=== PATIENT | male | born 1970 | race Caucasian/White ===

== ENCOUNTER 2017-01-11 15:35 | Emergency (ER) | payer MEDICAID ==
[~2017-01-11] VITALS: Ht 175.3 cm; Wt 96.2 kg
[~2017-01-11 15:35] MED LIST: ALBU18HF2 IH; BUPR-96 PO; CYCL-343 PO; DIPH25CA6 PO; DOCU250C75 PO; FOLI1TAB16 PO; FURO40TA5 PO; HYDR-3326 PO; LEVO25TA7 PO; MAGN400T26 PO; PANT40TA2 PO; SPIR25TA4 PO; ZOLP10TA6 PO
[2017-01-11 16:28] LABS: BASOPHILS % (AUTO) 0.3 % (0.0-2.0); DIFF TOTAL % 100 %; EOSINOPHILS # (AUTO) 0.3 /CMM (0.0-0.7); EOSINOPHILS % (AUTO) 5.6 % (0.0-6.0); HEMATOCRIT 28 % (39-51); HEMOGLOBIN 9.2 g/dL (13.5-17.5); LYMPHOCYTES # (AUTO) 0.7 /CMM (0.8-4.8); LYMPHOCYTES % (AUTO) 13.5 % (20.0-44.0); MEAN CORPUSCULAR HEMOGLOBIN 28 PG (26.0-33.0); MEAN CORPUSCULAR HGB CONC 33 g/dl (31.0-36.0); MEAN CORPUSCULAR VOLUME 85 fL (80-96); MONOCYTES # (AUTO) 0.2 /CMM (0.1-1.30); MONOCYTES % (AUTO) 4.4 % (2.0-12.0); NEUTROPHILS # (AUTO) 3.7 /CMM (1.8-8.9); NEUTROPHILS % (AUTO) 76.2 % (43.0-81.0); RED BLOOD CELL COUNT(AUTO) 3.29 MIL/uL (4.5-6.0); WHITE BLOOD COUNT (AUTO) 4.9 K/uL (4.3-11.0)
[2017-01-11 16:33] LABS: ADD UA MICROSCOPIC NO; KETONES,URINE Negative (NEGATIVE); LEUKOCYTE ESTERASE ,URINE Negative (NEGATIVE)
[2017-01-11 16:35] LABS: PLATELET COUNT (AUTO) 43 /CMM (150-450)
[2017-01-11 16:44] LABS: POTASSIUM 4.2 mmol/L (3.5-5.1)
[2017-01-11 16:49] LABS: ALBUMIN 2.5 g/dL (3.4-5.0); BILIRUBIN,DIRECT 0.6 mg/dL (0.0-0.2); BILIRUBIN,TOTAL 1.5 mg/dL (0.2-1.0); INDIRECT BILIRUBIN 0.9 mg/dL (0.0-1.1); TOTAL PROTEIN, SERUM 6.8 g/dL (6.4-8.2)
[2017-01-11 16:54] LABS: CALCIUM, SERUM 8.1 mg/dL (8.5-10.1)
[2017-01-11 17:10] LABS: EOSINOPHILS % (MANUAL) 6 % (0-4); LYMPHOCYTES % (MANUAL) 8 % (16-48)
[2017-01-11 17:13] LABS: PLATELET ESTIMATE DECREASED
[2017-01-11 17:14] LABS: ANISOCYTOSIS 1+
[2017-01-11 17:19] VITALS: BP 112/72
== END 2017-01-11 17:20 | disposition home or self-care (01) ==
LOC: ER 15:41
DX: R18.8 Other ascites (principal); K74.60 Unspecified cirrhosis of liver; K59.00 Constipation, unspecified; K21.9 Gastro-esophageal reflux disease without esophagitis; E03.9 Hypothyroidism, unspecified; D64.9 Anemia, unspecified; D69.6 Thrombocytopenia, unspecified
CPT/HCPCS: 36415; 76942-TC; 80048-TC; 80076-TC; 81000-TC; 83690-TC; 85025-TC; A4606; Z7610

== ENCOUNTER 2017-02-02 19:29 | Inpatient (IN) | payer MEDICAID ==
[~2017-02-02] VITALS: Ht 175.3 cm; Wt 102.5 kg
[2017-02-02 21:01] LABS: BASOPHILS % (AUTO) 0.3 % (0.0-2.0); DIFF TOTAL % 100 %; EOSINOPHILS # (AUTO) 0.3 /CMM (0.0-0.7); EOSINOPHILS % (AUTO) 5.8 % (0.0-6.0); HEMATOCRIT 28 % (39-51); HEMOGLOBIN 9.3 g/dL (13.5-17.5); LYMPHOCYTES # (AUTO) 0.8 /CMM (0.8-4.8); LYMPHOCYTES % (AUTO) 15.8 % (20.0-44.0); MEAN CORPUSCULAR HEMOGLOBIN 28 PG (26.0-33.0); MEAN CORPUSCULAR HGB CONC 33 g/dl (31.0-36.0); MEAN CORPUSCULAR VOLUME 85 fL (80-96); MONOCYTES # (AUTO) 0.5 /CMM (0.1-1.30); MONOCYTES % (AUTO) 9.1 % (2.0-12.0); NEUTROPHILS # (AUTO) 3.6 /CMM (1.8-8.9); PLATELET COUNT (AUTO) 70 /CMM (150-450); RED BLOOD CELL COUNT(AUTO) 3.27 MIL/uL (4.5-6.0); WHITE BLOOD COUNT (AUTO) 5.2 K/uL (4.3-11.0)
[2017-02-02 21:11] LABS: CALCIUM, SERUM 7.8 mg/dL (8.5-10.1); CREATININE 0.9 mg/dL (0.6-1.3); POTASSIUM 3.3 mmol/L (3.5-5.1)
[2017-02-02 21:15] LABS: INR 1.47 (0.87-1.13); PROTHROMBIN TIME 15.4 SECS (9.5-12.7)
[2017-02-02 21:16] LABS: ALBUMIN 2.4 g/dL (3.4-5.0); TOTAL PROTEIN, SERUM 6.9 g/dL (6.4-8.2)
[2017-02-02 21:38] LABS: EOSINOPHILS % (MANUAL) 4 % (0-4); LYMPHOCYTES % (MANUAL) 16 % (16-48); PLATELET ESTIMATE DECREASED
[2017-02-02] MEDS ORDERED: HYDROCODONE/APAP 10/325MG 1 EA TABLET ONE (21:54)
[2017-02-02] MEDS ORDERED: HYDROCODONE/APAP 10/325MG 1 EA TABLET PO ONE (22:30)
[2017-02-02 23:15] VITALS: BP 124/88
[2017-02-02 23:20] VITALS: BP 124/80
[2017-02-03] MEDS ORDERED: Z GUARD REMEDY 2 OZ OINT TP PRN
[2017-02-03] MEDS ORDERED: MORPHINE SULFATE INJ 2 MG/ML DISP.SYRIN IV PRN
[2017-02-03] MEDS ORDERED: HYDROCODONE/APAP 5/325MG 1 EACH TABLET PO PRN
[2017-02-03] MEDS ORDERED: ZOLPIDEM TARTRATE 5 MG TABLET PO PRN
[2017-02-03] MEDS ORDERED: ONDANSETRON HCL/PF 4 MG/2 ML VIAL IVP PRN
[2017-02-03] MEDS ORDERED: ACETAMINOPHEN 325 MG TABLET PO PRN
[2017-02-03] MEDS ORDERED: CYCLOBENZAPRINE 10 MG TABLET PO PRN (00:30)
[2017-02-03] MEDS ORDERED: DOCUSATE SODIUM 250 MG CAPSULE PO PRN (00:30)
[2017-02-03] MEDS ORDERED: POTASSIUM CHLORIDE 20 MEQ TAB.PRT.SR PO ONE ×2 (00:30→01:08)
[2017-02-03] MEDS ORDERED: ALBUTEROL SULFATE 8 GM HFA.AER.AD IH PRN (00:30)
[2017-02-03] MEDS ORDERED: diphenhydrAMINE HCL 25 MG CAPSULE ONE (01:08)
[2017-02-03] MEDS: diphenhydrAMINE HCL 25 MG CAPSULE PO PRN ×2 (01:16→08:40)
[2017-02-03] MEDS ORDERED: MORPHINE SULFATE INJ 2 MG/ML DISP.SYRIN ONE (03:29)
[2017-02-03 03:40] VITALS: BP 122/82
[2017-02-03] MEDS ORDERED: LEVOTHYROXINE SODIUM 25 MCG TABLET PO SCH (07:30)
[2017-02-03] MEDS ORDERED: PANTOPRAZOLE 40 MG TABLET.DR PO SCH (07:30)
[2017-02-03 07:42] LABS: BASOPHILS % (AUTO) 0.1 % (0.0-2.0); DIFF TOTAL % 100 %; EOSINOPHILS # (AUTO) 0.2 /CMM (0.0-0.7); EOSINOPHILS % (AUTO) 7.2 % (0.0-6.0); HEMATOCRIT 26 % (39-51); HEMOGLOBIN 8.7 g/dL (13.5-17.5); LYMPHOCYTES # (AUTO) 0.7 /CMM (0.8-4.8); LYMPHOCYTES % (AUTO) 25.7 % (20.0-44.0); MEAN CORPUSCULAR HEMOGLOBIN 29 PG (26.0-33.0); MEAN CORPUSCULAR HGB CONC 34 g/dl (31.0-36.0); MEAN CORPUSCULAR VOLUME 86 fL (80-96); MONOCYTES # (AUTO) 0.3 /CMM (0.1-1.30); MONOCYTES % (AUTO) 10.7 % (2.0-12.0); NEUTROPHILS # (AUTO) 1.5 /CMM (1.8-8.9); NEUTROPHILS % (AUTO) 56.3 % (43.0-81.0); PLATELET COUNT (AUTO) 53 /CMM (150-450); RED BLOOD CELL COUNT(AUTO) 3.03 MIL/uL (4.5-6.0); WHITE BLOOD COUNT (AUTO) 2.7 K/uL (4.3-11.0)
[2017-02-03 07:52] LABS: CALCIUM, SERUM 7.9 mg/dL (8.5-10.1); CREATININE 0.9 mg/dL (0.6-1.3); PHOSPHORUS 3.6 mg/dL (2.5-4.9); POTASSIUM 3.6 mmol/L (3.5-5.1)
[2017-02-03 08:00] VITALS: BP 120/72
[2017-02-03] MEDS: MAGNESIUM OXIDE 400 MG TABLET PO SCH ×2 (08:38→16:55)
[2017-02-03] MEDS: SPIRONOLACTONE 25 MG TABLET PO SCH ×2 (08:38→16:55)
[2017-02-03] MEDS ORDERED: BUPROPION XL 150 MG TAB.ER.24 PO SCH (09:00)
[2017-02-03] MEDS ORDERED: FUROSEMIDE 40 MG TABLET PO SCH (09:00)
[2017-02-03] MEDS ORDERED: FOLIC ACID 1 MG TABLET PO SCH (09:00)
[2017-02-03 09:59] LABS: ANISOCYTOSIS 1+; BAND % (MANUAL) 1 % (0.0-5.0); EOSINOPHILS % (MANUAL) 3 % (0-4); LYMPHOCYTES % (MANUAL) 20 % (16-48); PLATELET ESTIMATE DECREASED
[2017-02-03 10:00] LABS: HYPOCHROMASIA 1+
[2017-02-03 16:00] VITALS: BP 94/57
== END 2017-02-03 17:50 | disposition home or self-care (01) | DRG 279 ==
LOC: ER 19:32 → MED 22:39
PROVIDERS: ADMIT Nurse Practitioner Acute Care; ATTEND Nurse Practitioner Acute Care
PROC: 0W9G3ZZ Drainage of Peritoneal Cavity, Percutaneous Approach (ICD-10-PCS; principal; 2017-02-03)
DX: K72.00 Acute and subacute hepatic failure without coma (principal); R18.8 Other ascites; E44.0 Moderate protein-calorie malnutrition; Z76.82 Awaiting organ transplant status; D69.6 Thrombocytopenia, unspecified; F11.20 Opioid dependence, uncomplicated; I11.9 Hypertensive heart disease without heart failure; K76.6 Portal hypertension; D64.9 Anemia, unspecified; E87.6 Hypokalemia; F10.10 Alcohol abuse, uncomplicated; F32.9 Major depressive disorder, single episode, unspecified; G89.4 Chronic pain syndrome; K74.60 Unspecified cirrhosis of liver; F17.210 Nicotine dependence, cigarettes, uncomplicated
CPT/HCPCS: 36415; 71010-TC; 76942-TC; 80048-TC; 80061-TC; 80076-TC; 83690-TC; 83735-TC; 84100-TC; 85025-TC; 85730-TC; 87081-TC; A4606; J2270; Q0163; Z7610

== ENCOUNTER 2017-02-23 19:31 | Emergency (ER) | payer MEDICAID ==
[~2017-02-23] VITALS: Ht 175.3 cm; Wt 99.8 kg
[2017-02-23 20:08] VITALS: BP 115/66
--- NOTE | 2017-02-23 21:03 | NUR ---
LUZ AGUILERA AT BEDSIDE FOR EVAL
[2017-02-23] MEDS ORDERED: TRAMADOL HCL 50 MG TABLET ONE (21:28)
[2017-02-23] MEDS: TRAMADOL HCL 50 MG TABLET PO ONE (21:32)
--- NOTE | 2017-02-23 21:34 | NUR ---
Patient discharged to home in stable condition. Written and verbal after care instructions given. Patient verbalizes understanding of instruction. ambulatory with a steady gait
== END 2017-02-23 21:36 | disposition home or self-care (01) ==
LOC: ER 19:32
DX: K40.90 Unilateral inguinal hernia, without obstruction or gangrene, not specified as recurrent (principal); F17.210 Nicotine dependence, cigarettes, uncomplicated; K72.90 Hepatic failure, unspecified without coma; K74.60 Unspecified cirrhosis of liver; D69.59 Other secondary thrombocytopenia; Z76.82 Awaiting organ transplant status; Z88.5 Allergy status to narcotic agent
CPT/HCPCS: A4606; Z7610

== ENCOUNTER 2017-03-19 11:55 | Emergency (ER) | payer MEDICAID ==
[~2017-03-19] VITALS: Ht 175.3 cm; Wt 100.2 kg
--- NOTE | 2017-03-19 12:02 | NUR ---
PT AMBULATORY TO ER BED 10. C/O ABDOMINAL PAIN AND DISTENSION. WANTS THORACENTESIS. STATES LAST DRAINED 3 1/2 WEEKS AGO. SEVERE PAIN. GOWED AND PLACED ON MONITOR. AWAITING MD RIVERO.
--- NOTE | 2017-03-19 12:24 | NUR ---
CSW AT BEDSIDE FOR BLOOD DRAW.
[2017-03-19 12:30] LABS: BASOPHILS % (AUTO) 0.4 % (0.0-2.0); EOSINOPHILS # (AUTO) 0.2 /CMM (0.0-0.7); EOSINOPHILS % (AUTO) 4.8 % (0.0-6.0); HEMATOCRIT 26 % (39-51); HEMOGLOBIN 8.5 g/dL (13.5-17.5); LYMPHOCYTES # (AUTO) 0.4 /CMM (0.8-4.8); LYMPHOCYTES % (AUTO) 13.6 % (20.0-44.0); MEAN CORPUSCULAR HEMOGLOBIN 27 PG (26.0-33.0); MEAN CORPUSCULAR HGB CONC 33 g/dl (31.0-36.0); MEAN CORPUSCULAR VOLUME 83 fL (80-96); MONOCYTES # (AUTO) 0.3 /CMM (0.1-1.30); MONOCYTES % (AUTO) 8.9 % (2.0-12.0); NEUTROPHILS # (AUTO) 2.3 /CMM (1.8-8.9); NEUTROPHILS % (AUTO) 72.3 % (43.0-81.0); RDW COEFFICIENT OF VARIATION 17.2 (11.5-15.0); RED BLOOD CELL COUNT(AUTO) 3.15 MIL/uL (4.5-6.0); WHITE BLOOD COUNT (AUTO) 3.3 K/uL (4.3-11.0)
[2017-03-19 12:33] LABS: PLATELET COUNT (AUTO) 40 /CMM (150-450)
--- NOTE | 2017-03-19 12:37 | NUR ---
DR HERNÁNDEZ AT BEDSIDE FOR EVAL.
[2017-03-19 12:50] LABS: INR 1.59 (0.87-1.13)
[2017-03-19 13:37] LABS: NEUTROPHILS % (MANUAL) 77 (42-76)
[2017-03-19 13:38] LABS: ANISOCYTOSIS 1+; EOSINOPHILS % (MANUAL) 4 % (0-4); LYMPHOCYTES % (MANUAL) 15 % (16-48); MONOCYTES % (MANUAL) 4 % (0-11.0); PLATELET ESTIMATE DECREASED
--- NOTE | 2017-03-19 13:51 | NUR ---
DR HERNÁNDEZ, [facility] [employer]ATE COMMUNICATIONS MANAGER AT BEDSIDE FOR PARACENTESIS.
--- NOTE | 2017-03-19 14:16 | NUR ---
PARACENTESIS DONE. PT TOLERATED PROCEDURE WELL. 4.5 LITTERS TAKEN OUT. PT I STABLE CONDITION.
[2017-03-19] MEDS ORDERED: diphenhydrAMINE HCL 25 MG CAPSULE ONE (14:47)
[2017-03-19] MEDS ORDERED: DIPHENHYDRAMINE HCL 12.5 MG/5 ML UDC PO ONE (15:00)
[2017-03-19 15:09] LABS: GLUCOSE,BODY FLUID 103 mg/dL; PROTEIN, BODY FLUID 1.3 G/DL
[2017-03-19 15:43] LABS: APPEARANCE,SPUN,BODY FLUID CLEAR (CLEAR); TOTAL VOLUME,BODY FLUID 19 mL
[2017-03-19 15:46] LABS: WBC, BODY FLUID 140 /cu. mm. (0-200)
[2017-03-19 15:51] LABS: MACROPHAGES, BODY FLUID 27; MONOCYTES,BODY FLUID 7 %; POLYNUCLEAR, BODY FLUID 13 % (0-25)
[2017-03-19 15:56] VITALS: BP 125/76
--- NOTE | 2017-03-19 15:56 | NUR ---
Patient discharged to home in stable condition. Written and verbal after care instructions given. Patient verbalizes understanding of instruction.
== END 2017-03-19 15:57 | disposition home or self-care (01) ==
LOC: ER 11:56
DX: R18.8 Other ascites (principal); K72.90 Hepatic failure, unspecified without coma; D69.6 Thrombocytopenia, unspecified; F17.210 Nicotine dependence, cigarettes, uncomplicated; Z76.82 Awaiting organ transplant status; Z88.6 Allergy status to analgesic agent
CPT/HCPCS: 36415; 49083; 85025; 85730; 87070; 89051; 99285; A4606; A6402; Q0163; Z7610

== ENCOUNTER 2017-06-12 00:03 | Inpatient (IN) | payer MEDICAID ==
[2017-06-12] VITALS (7 sets, daily range): BP systolic 104–127; BP diastolic 64–78
[~2017-06-12] VITALS: Ht 175.3 cm; Wt 95.3 kg
--- NOTE | 2017-06-12 00:15 | NUR ---
PT PRESENTED TO THE ER WITH A C/O ABD DISTENSION. PT IS C/O ABD PAIN DUE TO THE DISTENTION. PT IS AA&O X4. PT HAS HX OF LIVER CIRRHOSIS AND ASCITIES. PT HAD HIS ABD DRAINED 1 WK AGO. PT IS SOB WITH AMBULATION. PT AMBULATED TO BED #1 WITH A SLOW STEADY GAIT. PT'S PALOR IS PALE/ASHY. PT IS ON THE MONITOR AND CONTINUOUS PULSE OX. PT IS ST ON THE MONITOR WITH HR AT 116.
--- NOTE | 2017-06-12 00:35 | NUR ---
18G IV STARTED IN [facility]. BLOOD WAS DRAWN
[2017-06-12 00:48] LABS: HEMATOCRIT 24 % (39-51); HEMOGLOBIN 7.3 g/dL (13.5-17.5); MEAN CORPUSCULAR HEMOGLOBIN 22 PG (26.0-33.0); MEAN CORPUSCULAR HGB CONC 31 g/dl (31.0-36.0); MEAN CORPUSCULAR VOLUME 71 fL (80-96); PLATELET COUNT (AUTO) 74 /CMM (150-450); RDW COEFFICIENT OF VARIATION 21.3 (11.5-15.0); RED BLOOD CELL COUNT(AUTO) 3.38 MIL/uL (4.5-6.0); WHITE BLOOD COUNT (AUTO) 4.5 K/uL (4.3-11.0)
[2017-06-12 00:54] LABS: CALCIUM, SERUM 8.2 mg/dL (8.5-10.1); CREATININE 1.2 mg/dL (0.6-1.3); POTASSIUM 3.9 mmol/L (3.5-5.1)
[2017-06-12 00:57] LABS: INR 1.44 (0.87-1.13); PROTHROMBIN TIME 15.8 SECS (9.5-12.7)
[2017-06-12 01:01] LABS: ALBUMIN 2.6 g/dL (3.4-5.0); BILIRUBIN,DIRECT 0.8 mg/dL (0.0-0.2); BILIRUBIN,TOTAL 1.8 mg/dL (0.2-1.0); TOTAL PROTEIN, SERUM 7.4 g/dL (6.4-8.2)
--- NOTE | 2017-06-12 01:07 | NUR ---
PT RETURNED FROM CT VIA WC.
[2017-06-12 01:22] LABS: EOSINOPHILS % (MANUAL) 6 % (0-4); LYMPHOCYTES % (MANUAL) 10 % (16-48); MONOCYTES % (MANUAL) 6 % (0-11.0); NEUTROPHILS % (MANUAL) 78 (42-76)
--- NOTE | 2017-06-12 01:55 | NUR ---
CALLING REPORT TO CARLOS SOUSA
[2017-06-12] MEDS ORDERED: MAGNESIUM HYDROXIDE 30 ML UDC PO PRN (02:00)
[2017-06-12] MEDS ORDERED: Z GUARD REMEDY 2 OZ OINT TP PRN (02:00)
[2017-06-12] MEDS ORDERED: ZOLPIDEM TARTRATE 5 MG TABLET PO PRN (02:00)
[2017-06-12] MEDS ORDERED: ONDANSETRON HCL/PF 4 MG/2 ML VIAL IVP PRN (02:00)
[2017-06-12] MEDS ORDERED: MAG HYDROX/AL HYDROX/SIMETH 30 ML UDC PO PRN (02:00)
[2017-06-12] MEDS ORDERED: ACETAMINOPHEN 325 MG TABLET PO PRN (02:00)
--- NOTE | 2017-06-12 02:30 | NUR ---
MS RN NOTE RECEIVED PATIENT AWAKE , ALERT, AND ORIENTED VIA WHEELCHAIR FROM ER. PATIENT DENIES ANY SOB OR RESPIRATORY DISTRESS AT THIS TIME. PATIENT HAS 5/10 PAIN TO ELSY A
--- NOTE | 2017-06-12 02:30 | NUR ---
MS RN NOTE PATIENT HAS 5/10 PAIN TO HIS ABDOMINAL AREA. WAITING FOR MD ORDERS AT THIS TIME. RELAXATION TECHNIQUES PROVIDED. ORIENTED PATIENT TO ROOM AND TO UNIT. ALL BELONGINGS CHECKED AND ACCOUNTED FOR. SKIN INTACT. PICTURES TAKEN AND PLACED IN CHART. MD AWARE OF LABS AT THIS TIME. HGB 7.3. NO ORDER TO TRANSFUSE RIGHT NOW. SIDE RAILS UP, CALL LIGHT WITHIN REACH. WILL CONTINUE TO MONITOR.
[2017-06-12] MEDS ORDERED: MORPHINE SULFATE INJ 4 MG/ML DISP.SYRIN ONE (05:02)
[2017-06-12] MEDS: MORPHINE SULFATE INJ 2 MG/ML DISP.SYRIN IV PRN ×6 (05:09→22:40)
--- NOTE | 2017-06-12 06:52 | NUR ---
MS RN NOTE PATIENT STABLE. WILL ENDORSE TO DAY SHIFT FOR AJ.
--- NOTE | 2017-06-12 06:55 | NUR ---
MS RN NOTE PATIENT NPO AT THIS TIME FOR US GUIDED THORACENTESIS
--- NOTE | 2017-06-12 07:00 | NUR ---
MS RN OPENING RECEIVED PATIENT A/OX4 DENIES SOB, DIFFICULTY BREATHING AND STATES CONSTANT PAIN 10 IN ABDOMEN; AWARE NEXT PAIN MEDICATION DUE 09 AND PATIENT STATES HE IS ABLE TO WAIT. ALL NEEDS IN REACH, BED LOWERED AND LOCKED, RAILS UPX3 FOR SAFETY AND WILL ROUND Q2H OR LESS PER NEEDS. PATIENT APPEARS STABLE AT THIS TIME
[2017-06-12] MEDS ORDERED: PANTOPRAZOLE 40 MG TABLET.DR PO SCH (07:30)
[2017-06-12 07:34] LABS: MAGNESIUM 1.5 mg/dL (1.8-2.4); PHOSPHORUS 3.9 mg/dL (2.5-4.9)
[2017-06-12] MEDS ORDERED: POTASSIUM CHLORIDE 10 MEQ/50 ML PREMIXED IVPB FOR PERIPHERAL LINE IV ONE (08:30)
[2017-06-12] MEDS ORDERED: POTASSIUM CHLORIDE 20 MEQ TAB.PRT.SR PO SCH (08:30)
--- NOTE | 2017-06-12 09:00 | NUR ---
MS RN NOTES PER PATIENT HE TAKES BENADRYL FOR ITCH NEEDED. MESSAGE TO DR ARDON TO NOTIFY OF MED RECON; WHICH HAS BENADRYL LISTED
--- NOTE | 2017-06-12 09:20 | NUR ---
MS GONZALEZ NOTES SPOKE WITH DR ARDON HE IS AWARE MED RECON AWAITING REVIEW. PER MD JOYNER TO ORDER ONCE TIME BENADRYL 25MG PO Addendum: 06/12/17 at 0944 by PERCY LOFTON RN 25 MG IV
[2017-06-12] MEDS ORDERED: diphenhydrAMINE HCL 25 MG CAPSULE PO ONE (09:30)
[2017-06-12] MEDS ORDERED: DOCUSATE SODIUM 250 MG CAPSULE PO PRN (10:00)
[2017-06-12] MEDS ORDERED: diphenhydrAMINE HCL 50 MG/ML VIAL IV ONE (10:00)
[2017-06-12] MEDS ORDERED: HYDROCODONE/APAP 5/325MG 1 EACH TABLET PO PRN (10:00)
--- NOTE | 2017-06-12 10:59 | NUR ---
MS RN NOTES REORDERED URINE SAMPLE IT WAS NOT GIVEN IN ER AND CANCELLED. CALLED LAB FOR PICKUP
--- NOTE | 2017-06-12 11:10 | NUR ---
MS RN NOTES DR ARDON AT BEDSIDE
[2017-06-12 11:22] LABS: APPEARANCE,URINE CLEAR (CLEAR); BILIRUBIN,URINE 1+ (NEGATIVE); BLOOD, URINE NEGATIVE Ery/uL (NEGATIVE); KETONES,URINE TRACE (NEGATIVE); LEUKOCYTE ESTERASE ,URINE NEGATIVE (NEGATIVE); NITRITE, URINE NEGATIVE (NEGATIVE); PH,URINE 5.5 (5.0-8.0); PROTEIN,URINE NEGATIVE (NEGATIVE); UGLUCOSE NEGATIVE (NEGATIVE); UROBILINOGEN,URINE 0.2 EU/dL (0.2)
[2017-06-12 11:23] LABS: COLOR,URINE DARK YELLOW (YELLOW)
[2017-06-12 11:35] LABS: BACTERIA,URINE Rare /HPF (None Seen); RBC,URINE NONE SEEN /HPF (0-2); SQUAMOUS EPITHELIAL CELL,UR Rare /HPF (None Seen); WBC,URINE 0-2 /HPF (0-3)
--- NOTE | 2017-06-12 12:05 | NUR ---
MS RN NOTES PT COMPLETING PARACENTESIS WILL GIVE MEDICATIONS ONCE COMPLETED. 5 L REMOVED
[2017-06-12] MEDS: FUROSEMIDE 40 MG TABLET PO SCH (12:17)
[2017-06-12] MEDS: FOLIC ACID 1 MG TABLET PO SCH (12:17)
[2017-06-12] MEDS: LACTULOSE 10 G/15 ML UDC (PYXIS) PO PRN ×2 (12:17→19:02)
[2017-06-12] MEDS: MAGNESIUM OXIDE 400 MG TABLET PO SCH ×2 (12:17→18:03)
[2017-06-12] MEDS: PANTOPRAZOLE 40 MG TABLET.DR PO SCH ×2 (12:17→18:04)
[2017-06-12] MEDS: CYCLOBENZAPRINE 10 MG TABLET PO PRN ×3 (12:17→22:07)
[2017-06-12] MEDS: BUPROPION XL 150 MG TAB.ER.24 PO SCH (12:17)
[2017-06-12] MEDS: LEVOTHYROXINE SODIUM 25 MCG TABLET PO SCH (12:17)
[2017-06-12] MEDS: SPIRONOLACTONE 25 MG TABLET PO SCH ×2 (12:18→18:04)
[2017-06-12] MEDS: diphenhydrAMINE HCL 25 MG CAPSULE PO PRN ×2 (15:56→22:07)
--- NOTE | 2017-06-12 18:47 | NUR ---
MS RN CLOSING ALL DUE MEDS GIVEN AND ALL NEEDS MET. PATIENT STABLE. NO COMPLICATIONS. PATIENT STATES A LITTLE LESS PAIN AFTER PARACENTESIS BUT STILL PRESENT AND CHRONIC. ALL NEEDS AT SIDE AND WILL ENDORSE CARE TO RN FOR AJ.
--- NOTE | 2017-06-12 19:30 | NUR ---
MS RN RECEIVED PATIENT A/OX4 DENIES SOB, DIFFICULTY BREATHING AND STATES CONSTANT PAIN /10 IN ABDOMEN;ALL NEEDS IN REACH, BED LOWERED AND LOCKED, RAILS UPX3 FOR SAFETY AND WILL ROUND Q2H OR LESS PER NEEDS. PATIENT APPEARS STABLE AT THIS TIME
[2017-06-12] MEDS ORDERED: ZOLPIDEM TARTRATE 10 MG TABLET ONE (22:23)
[2017-06-12] MEDS: ZOLPIDEM TARTRATE 10 MG TABLET PO SCH (23:48)
[2017-06-13] VITALS (8 sets, daily range): BP systolic 96–118; BP diastolic 60–74
[2017-06-13 06:57] LABS: CALCIUM, SERUM 7.9 mg/dL (8.5-10.1); CREATININE 1.4 mg/dL (0.6-1.3); POTASSIUM 4.5 mmol/L (3.5-5.1)
[2017-06-13] MEDS: MORPHINE SULFATE INJ 2 MG/ML DISP.SYRIN IV PRN ×3 (06:58→22:24)
--- NOTE | 2017-06-13 07:10 | NUR ---
MS RN OPENING RECEIVED PATIENT A/OX4 DENIES SOB, DIFFICULTY BREATHING AND STATES PAIN IS GETTING BETTER WITH PRN MEDICATIONS AND POST FLUID REMOVAL. PATIENT IS AWAKE AND ABLE TO FALL ASLEEP EASILY. PATIENT APPEARS STABLE NO S/S BLEEDING. ALL NEEDS IN REACH, BED LOWERED AND LOCKED, RAILS UPX3 FOR SAFETY AND WILL ROUND Q2H OR LESS PER NEEDS
[2017-06-13 07:11] LABS: HEMATOCRIT 23 % (39-51); MEAN CORPUSCULAR HEMOGLOBIN 22 PG (26.0-33.0); MEAN CORPUSCULAR HGB CONC 30 g/dl (31.0-36.0); MEAN CORPUSCULAR VOLUME 72 fL (80-96); PLATELET COUNT (AUTO) 69 /CMM (150-450); RDW COEFFICIENT OF VARIATION 21.8 (11.5-15.0); RED BLOOD CELL COUNT(AUTO) 3.13 MIL/uL (4.5-6.0); WHITE BLOOD COUNT (AUTO) 3.5 K/uL (4.3-11.0)
[2017-06-13 07:17] LABS: HEMOGLOBIN 6.8 g/dL (13.5-17.5)
--- NOTE | 2017-06-13 07:22 | NUR ---
MS RN NOTES RECEIVED CALL FROM LAB IN RE TO HGB 6.8. CALL MADE TO EMELYN INGRAM AND MESSAGE LEFT
--- NOTE | 2017-06-13 07:25 | NUR ---
MS RN NOTES SPOKE WITH EMELYN INGRAM AND NOTIFIED OF ABNORMAL LABS. PER MD ORDER 1 UNIT OF PRBC AND RECHECK CBC 2 HOURS POST TRANSFUSION
[2017-06-13] MEDS: CYCLOBENZAPRINE 10 MG TABLET PO PRN (07:57)
[2017-06-13] MEDS: diphenhydrAMINE HCL 25 MG CAPSULE PO PRN ×2 (07:58→21:58)
[2017-06-13] MEDS: LEVOTHYROXINE SODIUM 25 MCG TABLET PO SCH (07:58)
[2017-06-13] MEDS: FOLIC ACID 1 MG TABLET PO SCH (08:00)
[2017-06-13] MEDS: BUPROPION XL 150 MG TAB.ER.24 PO SCH (08:00)
[2017-06-13] MEDS: SPIRONOLACTONE 25 MG TABLET PO SCH ×2 (08:00→16:10)
[2017-06-13] MEDS: FUROSEMIDE 40 MG TABLET PO SCH (08:00)
[2017-06-13] MEDS: MAGNESIUM OXIDE 400 MG TABLET PO SCH ×2 (08:00→16:10)
[2017-06-13] MEDS: LACTULOSE 10 G/15 ML UDC (PYXIS) PO PRN (08:00)
[2017-06-13] MEDS: PANTOPRAZOLE 40 MG TABLET.DR PO SCH ×2 (08:01→16:10)
[2017-06-13 08:29] LABS: EOSINOPHILS % (MANUAL) 6 % (0-4); LYMPHOCYTES % (MANUAL) 17 % (16-48); MONOCYTES % (MANUAL) 3 % (0-11.0); NEUTROPHILS % (MANUAL) 74 (42-76)
--- NOTE | 2017-06-13 09:38 | NUR ---
MS RN NOTES DR HAYES AT BEDSIDE. PER MD JOYNER TO DC LACTULOSE AND CONTINUE PATIENT HOME MEDICATION XIFAXAN 550MG BID.
[2017-06-13] MEDS ORDERED: BLOOD IV SET 1 EA INFUS.SET MC ONE (10:28)
[2017-06-13] MEDS ORDERED: IV NS 0.9% 250 ML IV ONE (10:28)
--- NOTE | 2017-06-13 11:00 | NUR ---
ms rn notes blood transfusion begun. patient stable
--- NOTE | 2017-06-13 11:15 | NUR ---
ms rn notes patient stable no complications. resting well
--- NOTE | 2017-06-13 14:12 | NUR ---
MS RN NOTES BLOOD TRANSFUSION COMPLETED. PATIENT STABLE NO COMPLICATIONS. RESTING WELL IN BED.
[2017-06-13] MEDS: RIFAXIMIN 550 MG TABLET PO SCH (16:10)
--- NOTE | 2017-06-13 18:29 | NUR ---
MS RN NOTES PATIENT STATES NO BM SINCE MONDAY. PROVIDING PRUNE JUICE AND PATIENT WANTS TO WAIT TO TAKE MOM UNTIL LATER TONIGHT
--- NOTE | 2017-06-13 18:45 | NUR ---
MS RN CLOSING ALL DUE MEDS GIVEN AND ALL NEEDS MET. PATIENT STABLE. NO COMPLICATIONS HOWEVER PATIENT STATING NO BP. AGAIN WILL TAKE MOM LATER TONIGHT PER PATIENT. PAIN MANAGED WITH BOTH PHARM AND NON PHARM MEASURES. ALL NEEDS AT SIDE AND WILL ENDORSE CARE TO RN FOR AJ.
[2017-06-13] MEDS: ZOLPIDEM TARTRATE 10 MG TABLET PO SCH (21:58)
[2017-06-14] MEDS: MORPHINE SULFATE INJ 2 MG/ML DISP.SYRIN IV PRN (06:03)
--- NOTE | 2017-06-14 06:25 | NUR ---
MS RN NOTE PATIENT STABLE. WILL ENDORSE TO DAY SHIFT FOR AJ.
[2017-06-14 06:54] LABS: HEMATOCRIT 25 % (39-51); HEMOGLOBIN 7.9 g/dL (13.5-17.5); MEAN CORPUSCULAR HEMOGLOBIN 23 PG (26.0-33.0); MEAN CORPUSCULAR HGB CONC 32 g/dl (31.0-36.0); MEAN CORPUSCULAR VOLUME 72 fL (80-96); PLATELET COUNT (AUTO) 71 /CMM (150-450); RED BLOOD CELL COUNT(AUTO) 3.45 MIL/uL (4.5-6.0)
--- NOTE | 2017-06-14 07:15 | NUR ---
RN MS NOTES PATIENT IN BED, ALERT AND ORIENTED, DENIES PAIN OR DISCOMFORT AT THIS TIME, NEEDS ATTENDED AND MET, PIV ON LEFT AC PATENT AND INTACT, FLUSHES WELL, BED LOW POSITION AND LOCKED, SIDERAILS X2 UP, CALL LIGHT WITHIN REACH, WILL CONTINUE TO MONITOR.
[2017-06-14] MEDS: FUROSEMIDE 40 MG TABLET PO SCH (08:09)
[2017-06-14] MEDS: SPIRONOLACTONE 25 MG TABLET PO SCH (08:09)
[2017-06-14] MEDS: LEVOTHYROXINE SODIUM 25 MCG TABLET PO SCH (08:09)
[2017-06-14] MEDS: MAGNESIUM OXIDE 400 MG TABLET PO SCH (08:09)
[2017-06-14] MEDS: FOLIC ACID 1 MG TABLET PO SCH (08:09)
[2017-06-14] MEDS: PANTOPRAZOLE 40 MG TABLET.DR PO SCH (08:10)
[2017-06-14] MEDS: RIFAXIMIN 550 MG TABLET PO SCH (08:10)
[2017-06-14] MEDS: BUPROPION XL 150 MG TAB.ER.24 PO SCH (08:10)
[2017-06-14 08:38] LABS: BAND % (MANUAL) 1 % (0.0-5.0); EOSINOPHILS % (MANUAL) 7 % (0-4); LYMPHOCYTES % (MANUAL) 20 % (16-48); MONOCYTES % (MANUAL) 11 % (0-11.0); NEUTROPHILS % (MANUAL) 61 (42-76)
[2017-06-14 09:16] VITALS: BP 122/66
--- NOTE | 2017-06-14 15:17 | NUR ---
RN MS NOTES PATIENT IN BED, ALERT AND ORIENTED, JUST COMPLETED US GUIDED PARACENTESIS WITH OUTPUT OF 1750ML, VITALS SIGNS STABLE, MD MADE AWARE, WILL CONTINUE TO MONITOR.
[2017-06-14] MEDS ORDERED: LACT10SO69 PO (16:13)
--- NOTE | 2017-06-14 16:54 | NUR ---
CLEANER AND PRESSER NOTE PATIENT ALERT AND ORIENTED, NO DISTRESS NOTED, ABLE TO AMBULATE INDEPENDENTLY, RECEIVED DISCHARGE INSTRUCTIONS AND VERBALIZED UNDERSTANDING, DISCHARGE PAPERWORKS SIGNED, SKIN ASSESSMENT COMPLETED, INTACT, PHOTOS TAKEN OF LEFT LEG AND FOOT FOR DISCOLORATION, PIV REMOVED, ALL BELONGINGS RECONCILED, ALL NEEDS ATTENDED, LEFT THE FACILITY IN STABLE CONDITION, VIA PRIVATE CAR.
== END 2017-06-14 16:54 | disposition home or self-care (01) | DRG 279 ==
LOC: ER 00:03 → MEDSG2 02:15
PROVIDERS: ADMIT Nurse Practitioner Acute Care; ATTEND Nurse Practitioner Acute Care
PROC: 0W9G3ZZ Drainage of Peritoneal Cavity, Percutaneous Approach (ICD-10-PCS; principal; 2017-06-12)
PROC: 30233N1 Transfusion of Nonautologous Red Blood Cells into Peripheral Vein, Percutaneous Approach (ICD-10-PCS; 2017-06-13)
PROC: 0W9G3ZZ Drainage of Peritoneal Cavity, Percutaneous Approach (ICD-10-PCS; 2017-06-14)
DX: K72.90 Hepatic failure, unspecified without coma (principal); D61.818 Other pancytopenia; R18.8 Other ascites; E87.1 Hypo-osmolality and hyponatremia; K74.60 Unspecified cirrhosis of liver; K76.6 Portal hypertension; D63.8 Anemia in other chronic diseases classified elsewhere; F17.210 Nicotine dependence, cigarettes, uncomplicated
CPT/HCPCS: 36415; 71010-TC; 74022-TC; 76942-TC; 80048-TC; 80061-TC; 80076-TC; 81000-TC; 82140-TC; 83690-TC; 83735-TC; 84100-TC; 85025-TC; 85730-TC; 86850-TC; 86921-TC; 87081-TC; 87086-TC; A4606; J1200; J2270; J2405; J7050; P9016-BL; Q0163; Z7610

== ENCOUNTER 2017-06-28 10:24 | Inpatient (IN) | payer MEDICAID ==
[~2017-06-28] VITALS: Ht 170.2 cm; Wt 100.2 kg
[~2017-06-28 10:24] MED LIST changes: +LACT10SO69 PO
--- NOTE | 2017-06-28 10:41 | NUR ---
PRESENTS SELF TO ED FOR ABDOMINAL DISTENTION AND DISCOMFORT THAT ALSO CAUSES SLIGHT SHORTNES OF BREATH, PATIENT WITH HX OF LIVER CIRRHOSIS. LAST PARECENTESIS WAS 2 WEEKS AGO. PATIENT IS AFEBRILE. VSS
[2017-06-28 12:21] LABS: BASOPHILS % (AUTO) 0.6 % (0.0-2.0); EOSINOPHILS # (AUTO) 0.2 /CMM (0.0-0.7); EOSINOPHILS % (AUTO) 3.3 % (0.0-6.0); HEMATOCRIT 26 % (39-51); LYMPHOCYTES # (AUTO) 0.7 /CMM (0.8-4.8); LYMPHOCYTES % (AUTO) 13.2 % (20.0-44.0); MEAN CORPUSCULAR HEMOGLOBIN 22 PG (26.0-33.0); MEAN CORPUSCULAR HGB CONC 31 g/dl (31.0-36.0); MEAN CORPUSCULAR VOLUME 72 fL (80-96); MONOCYTES # (AUTO) 0.5 /CMM (0.1-1.30); MONOCYTES % (AUTO) 10.4 % (2.0-12.0); NEUTROPHILS # (AUTO) 3.6 /CMM (1.8-8.9); NEUTROPHILS % (AUTO) 72.5 % (43.0-81.0); PLATELET COUNT (AUTO) 78 /CMM (150-450); RDW COEFFICIENT OF VARIATION 23.6 (11.5-15.0); RED BLOOD CELL COUNT(AUTO) 3.57 MIL/uL (4.5-6.0)
[2017-06-28 12:31] LABS: CALCIUM, SERUM 8.2 mg/dL (8.5-10.1); CREATININE 1.3 mg/dL (0.6-1.3); POTASSIUM 3.9 mmol/L (3.5-5.1)
[2017-06-28 12:37] LABS: ALBUMIN 2.5 g/dL (3.4-5.0); BILIRUBIN,DIRECT 0.9 mg/dL (0.0-0.2); INR 1.4 (0.87-1.13); PROTHROMBIN TIME 14.8 SECS (9.5-12.7)
--- NOTE | 2017-06-28 12:53 | NUR ---
CALLED DR PÉREZ OFFICE, WAS PAGED.
[2017-06-28] MEDS ORDERED: ZINC50TA60 PO (13:20)
[2017-06-28] MEDS ORDERED: RIFA550T PO (13:20)
[2017-06-28] MEDS ORDERED: POTA10CA43 PO (13:20)
[2017-06-28] MEDS ORDERED: ONDA4TAB5 PO (13:20)
[2017-06-28] MEDS ORDERED: CALC500T51 PO (13:20)
--- NOTE | 2017-06-28 13:29 | NUR ---
REPAGED DR HECTOR WILSON.
[2017-06-28 13:36] LABS: LYMPHOCYTES % (MANUAL) 12 % (16-48); MONOCYTES % (MANUAL) 9 % (0-11.0); NEUTROPHILS % (MANUAL) 79 (42-76)
--- NOTE | 2017-06-28 13:36 | NUR ---
REPORT GIVEN TO CARLOS ODOM FOR AJ
[2017-06-28 13:51] LABS: APPEARANCE,URINE Clear (CLEAR); BILIRUBIN,URINE Negative (NEGATIVE); BLOOD, URINE Trace-intact Ery/uL (NEGATIVE); COLOR,URINE Yellow (YELLOW); KETONES,URINE Negative (NEGATIVE); LEUKOCYTE ESTERASE ,URINE Negative (NEGATIVE); NITRITE, URINE Negative (NEGATIVE); PROTEIN,URINE Negative (NEGATIVE); UGLUCOSE Negative (NEGATIVE); UROBILINOGEN,URINE 0.2 EU/dL (0.2)
[2017-06-28 14:00] LABS: BACTERIA,URINE Rare /HPF (None Seen); RBC,URINE 0-2 /HPF (0-2); SQUAMOUS EPITHELIAL CELL,UR None Seen /HPF (None Seen); WBC,URINE 0-2 /HPF (0-3)
--- NOTE | 2017-06-28 14:39 | NUR ---
PT TRANSPORTED TO [facility]
--- NOTE | 2017-06-28 14:45 | NUR ---
MS RN OPENING NOTE PATIENT ARRIVED FROM ER IS STABLE, AMBULATORY CONDITION. REPORT GIVEN TO ORDERS RECEIVED AND DOCUMENTED KATIE. ALERT/ORIENTED X4, COOPERATIVE. R/AC IV PATENT. DENIES CHEST PAIN, PRESENTS WITH SOB ON REST. BED IN LOW POSITION, LOCKED HIGH FOWLERS FOR COMFORT OF BREATHING, SIDE RAILS UP X2. ALL NEEDS WITHIN REACH.
[2017-06-28 15:00] VITALS: BP 131/78
--- NOTE | 2017-06-28 15:00 | NUR ---
MS GONZALEZ note bilateral eyes/icteric sclera Addendum: 06/28/17 at 1851 by NORI GARCIA RN Amended: Links added.
[2017-06-28] MEDS ORDERED: ONDANSETRON 4 MG TAB.RAPDIS PO PRN (17:30)
[2017-06-28] MEDS ORDERED: CYCLOBENZAPRINE 10 MG TABLET PO PRN (17:30)
[2017-06-28] MEDS ORDERED: ALBUMIN 25% 25 GM in PREMIX 1 EA IV PRN (18:00)
[2017-06-28] MEDS ORDERED: CEFTRIAXONE 1 G in IV D5W 50 ML IV SCH (18:00)
[2017-06-28] MEDS ORDERED: ALBUMIN 25% 12.5 GM in PREMIX 1 EA IV PRN (18:00)
[2017-06-28] MEDS: HYDROMORPHONE 1 MG/1 ML DISP.SYRIN IV PRN (18:58)
--- NOTE | 2017-06-28 19:20 | NUR ---
MS RN NOTES RECEIVED PT IN BED, AWAKE, A/O X 3. VERBALLY RESPONSIVE. NO DISTRESS, NO SOB AT THIS TIME. RESPIRATION IS EVEN AND UNLABORED. IV SITE ON RAC INTACT AND PATENT. NO S/S OF INFILTRATION NOTED. DENIES ANY PAIN OR DISCOMFORT AT THIS TIME. ALL NEEDS ATTENDED AND MET. KEPT COMFORTABLE. CALL LIGHT WITHIN REACH. SAFETY PRECAUTIONS OBSERVED. WILL CONT TO MONITOR.
[2017-06-28] MEDS ORDERED: ALBUTEROL FS 2.5 MG/3 ML VIAL.NEB NEB PRN (19:30)
--- NOTE | 2017-06-28 19:30 | NUR ---
MS RN NOTE PATIENT IS RESTING IN BED. PAIN MEDICATION ADMINISTERED, REPORTS DECREASE IN ABDOMINAL PAIN/CRAMPING FROM 8/10 TO 4/10. PATIENT REPORTS 4/10 TO BE TOLERABLE PAIN LEVEL. PATIENT IS AWAKE, STABLE, ALERT/ORIENTED X4. BED IS LOCKED IN LOW POSITION, SIDE RAILS UP X2. DENIES CHEST PAIN. PRESENTS WITH SOB ON REST S/T FLUID ACCUMULATION/ASCITES. PATIENT PLACED IN HIGH FOWLERS FOR COMFORT/ BREATHING. ALL NEEDS MET. ALL BELONGINGS/NEEDS WITHIN REACH. CALL LIGHT IN REACH. WILL ENDORSE TO EDGE SANDER RN FOR AJ.
[2017-06-28 20:00] VITALS: BP 133/77
--- NOTE | 2017-06-28 20:15 | NUR ---
PT IS A/O X 4 , ABLE TO VERBALIZE NEEDS, REQUESTING FOR AMBIEN. PLACED A CALL TO DR. WILSON, SPOKE WITH AILYN CHERRY WELL TESTER AT THIS TIME, RELAYED PT'S REQUEST FOR AMBIEN WITH N.O FOR AMBIEN 10 MG PRN QHS NOTED AND CARRIED OUT . ALSO BAND NAILER INFORMED OF PT'S HR OF 120'S.
[2017-06-28] MEDS: diphenhydrAMINE HCL 25 MG CAPSULE PO PRN (20:22)
[2017-06-28] MEDS ORDERED: ZOLPIDEM TARTRATE 10 MG TABLET PO PRN (20:30)
[2017-06-29] MEDS: HYDROMORPHONE 1 MG/1 ML DISP.SYRIN IV PRN (03:01)
[2017-06-29 04:00] VITALS: BP 129/80
[2017-06-29] MEDS: diphenhydrAMINE HCL 25 MG CAPSULE PO PRN ×2 (04:59→15:36)
[2017-06-29 06:32] LABS: CALCIUM, SERUM 7.7 mg/dL (8.5-10.1); CREATININE 1.2 mg/dL (0.6-1.3); POTASSIUM 3.6 mmol/L (3.5-5.1)
--- NOTE | 2017-06-29 06:40 | NUR ---
MS RN NOTES PT IN BED, AWAKE, A/O X 3. VERBALLY RESPONSIVE. NO DISTRESS, NO SOB AT THIS TIME. RESPIRATION IS EVEN AND UNLABORED. IV SITE ON RAC INTACT AND PATENT. NO S/S OF INFILTRATION NOTED. DENIES ANY PAIN OR DISCOMFORT AT THIS TIME. PT IS AMBULATORY. ABLE TO URINATE FREELY WITH YELLOW URINE. ALL NEEDS ATTENDED AND MET. KEPT COMFORTABLE. CALL LIGHT WITHIN REACH. SAFETY PRECAUTIONS OBSERVED. WILL ENDORSE TO NEXT SHIFT FOR AJ.
--- NOTE | 2017-06-29 07:20 | NUR ---
RN OPENING NOTES RECEIVED PATIENT IN BED, AWAKE, A/O X 3. NO ACUTE DISTRESS, NO SOB AT THIS TIME. RESPIRATION IS EVEN AND UNLABORED. IV SITE ON RAC INTACT AND PATENT. NO S/S OF INFILTRATION NOTED. DENIES ANY PAIN OR DISCOMFORT AT THIS TIME. ALL NEEDS ATTENDED AND MET. KEPT COMFORTABLE. BED IN LOW POSITION, LOCKED, SIDERAILS UPX2, CALL LIGHT WITHIN REACH. SAFETY PRECAUTIONS OBSERVED. WILL CONTINUE TO MONITOR ACCORDINGLY.
[2017-06-29] MEDS ORDERED: LEVOTHYROXINE SODIUM 25 MCG TABLET PO SCH (07:30)
[2017-06-29 07:36] LABS: THYROID STIMULATING HORMONE 5.025 uIU/mL (0.358-3.74)
[2017-06-29 08:00] VITALS: BP 128/72
[2017-06-29] MEDS: MAGNESIUM OXIDE 400 MG TABLET PO SCH ×2 (08:10→17:45)
[2017-06-29] MEDS: PANTOPRAZOLE 40 MG TABLET.DR PO SCH ×2 (08:10→17:45)
[2017-06-29] MEDS: SPIRONOLACTONE 25 MG TABLET PO SCH ×2 (08:11→17:45)
[2017-06-29] MEDS ORDERED: FUROSEMIDE 40 MG TABLET PO SCH (09:00)
[2017-06-29] MEDS ORDERED: ZINC SULFATE 220 MG CAPSULE PO SCH ×2 (09:00)
[2017-06-29] MEDS ORDERED: CALCIUM CARBONATE (1250) 500 MG TABLET PO SCH (09:00)
[2017-06-29] MEDS ORDERED: BUPROPION XL 150 MG TAB.ER.24 PO SCH (09:00)
--- NOTE | 2017-06-29 11:00 | NUR ---
RN NOTES PATIENT HAD PARACENTESIS DONE WITH OUTPUT OF 5.5L. PATIENT TOLERATED WELL. WILL CONTINUE TO MONITOR ACCORDINGLY.
[2017-06-29 16:00] VITALS: BP 113/61
--- NOTE | 2017-06-29 18:25 | NUR ---
RN NOTES DISCHARGE PATIENT IN STABLE CONDITION VIA PRIVATE CAR BY LEONA MELISSA ACCOMPANIED BY FLO OTTO. PATIENT EAGER TO LEAVE, REFUSED PICTURES. DISCHARGE TEACHING/INSTRUCTIONS, AND EXITCARE DONE.
== END 2017-06-29 18:15 | disposition home or self-care (01) | DRG 280 ==
LOC: ER 10:25 → MED 14:04
PROVIDERS: ADMIT Internal Medicine; ATTEND Internal Medicine
PROC: 0W9G3ZZ Drainage of Peritoneal Cavity, Percutaneous Approach (ICD-10-PCS; principal; 2017-06-29)
DX: K70.31 Alcoholic cirrhosis of liver with ascites (principal); D61.818 Other pancytopenia; I85.10 Secondary esophageal varices without bleeding; F10.20 Alcohol dependence, uncomplicated; Y90.9 Presence of alcohol in blood, level not specified; E66.9 Obesity, unspecified; J42 Unspecified chronic bronchitis; Z72.0 Tobacco use; Z82.49 Family history of ischemic heart disease and other diseases of the circulatory system; Z82.3 Family history of stroke; Z90.49 Acquired absence of other specified parts of digestive tract; Z98.84 Bariatric surgery status; Z98.890 Other specified postprocedural states
CPT/HCPCS: 36415; 71010-TC; 76942-TC; 80048-TC; 80076-TC; 81000-TC; 82140-TC; 83690-TC; 84443-TC; 85025-TC; 85730-TC; 87081-TC; 87086-TC; A4216; J0696; J1170; J7050; J7060; P9047; Q0162; Q0163

== ENCOUNTER 2017-07-01 16:10 | Inpatient (IN) | payer MEDICAID ==
[~2017-07-01] VITALS: Ht 175.3 cm; Wt 93.4 kg
[~2017-07-01 16:10] MED LIST changes: +CALC500T51 PO; -DOCU250C75 PO; -FOLI1TAB16 PO; -HYDR-3326 PO; -LACT10SO69 PO; +ONDA4TAB5 PO; +ZINC50TA60 PO; -ZOLP10TA6 PO
[2017-07-01] MEDS ORDERED: FUROSEMIDE 40 MG/4 ML VIAL IV STA (16:47)
[2017-07-01] MEDS ORDERED: ONDANSETRON HCL/PF 4 MG/2 ML VIAL IVP ONE (17:00)
[2017-07-01] MEDS ORDERED: PANTOPRAZOLE 40 MG VIAL IV ONE (17:00)
[2017-07-01] MEDS ORDERED: PANTOPRAZOLE 40 MG VIAL ONE (17:17)
[2017-07-01] MEDS ORDERED: FUROSEMIDE 40 MG/4 ML VIAL ONE (17:17)
[2017-07-01] MEDS ORDERED: ONDANSETRON HCL/PF 4 MG/2 ML VIAL ONE ×2 (17:18→20:57)
[2017-07-01 17:21] LABS: BASOPHILS % (AUTO) 0.3 % (0.0-2.0); EOSINOPHILS # (AUTO) 0.4 /CMM (0.0-0.7); EOSINOPHILS % (AUTO) 7.8 % (0.0-6.0); HEMATOCRIT 25 % (39-51); HEMOGLOBIN 7.8 g/dL (13.5-17.5); LYMPHOCYTES # (AUTO) 0.6 /CMM (0.8-4.8); LYMPHOCYTES % (AUTO) 13.6 % (20.0-44.0); MEAN CORPUSCULAR HEMOGLOBIN 23 PG (26.0-33.0); MEAN CORPUSCULAR HGB CONC 31 g/dl (31.0-36.0); MEAN CORPUSCULAR VOLUME 73 fL (80-96); MONOCYTES # (AUTO) 0.3 /CMM (0.1-1.30); MONOCYTES % (AUTO) 7.1 % (2.0-12.0); NEUTROPHILS # (AUTO) 3.3 /CMM (1.8-8.9); NEUTROPHILS % (AUTO) 71.2 % (43.0-81.0); PLATELET COUNT (AUTO) 77 /CMM (150-450); RDW COEFFICIENT OF VARIATION 24.8 (11.5-15.0); RED BLOOD CELL COUNT(AUTO) 3.43 MIL/uL (4.5-6.0); WHITE BLOOD COUNT (AUTO) 4.6 K/uL (4.3-11.0)
[2017-07-01 17:26] LABS: CALCIUM, SERUM 7.9 mg/dL (8.5-10.1); CARBON DIOXIDE 26 mmol/L (21-32); CHLORIDE 99 mmol/L (98-107); CREATININE 1.4 mg/dL (0.6-1.3); GLUCOSE 99 mg/dL (74-106); POTASSIUM 3.8 mmol/L (3.5-5.1); SODIUM SERUM 133 mmol/L (136-145); UREA NITROGEN, BLOOD 20 mg/dL (7-18)
[2017-07-01 17:34] LABS: ALANINE AMINOTRANSFERASE 33 U/L (12-78); ALBUMIN 2.4 g/dL (3.4-5.0); ALKALINE PHOSPHATASE 134 U/L (46-116); ASPARTATE AMINOTRANSFERASE 59 U/L (15-37); BILIRUBIN,TOTAL 1.9 mg/dL (0.2-1.0); LIPASE 302 U/L (73-393); TOTAL PROTEIN, SERUM 7.1 g/dL (6.4-8.2)
[2017-07-01 17:37] LABS: INR 1.47 (0.87-1.13); PROTHROMBIN TIME 15.6 SECS (9.5-12.7)
--- NOTE | 2017-07-01 17:52 | NUR ---
PT REC' D TO ER C/O ABD PAIN 07/06 PT WAS HERE 2 DAYS AGO FOR THE SAME THING IVSTATERTED 20G RT AC LABS DRAWN AND SENT . VSS MEDS GIVEN PER MD ORDER
--- NOTE | 2017-07-01 17:55 | NUR ---
CALLED DR HECTOR WILSON'S ANSWERING SERVICE. DR WILSON NOT OLEO HASHER AND RENDERER
[2017-07-01] MEDS ORDERED: POTA8TAB8 PO (18:01)
[2017-07-01] MEDS ORDERED: ZOLP10TA2 PO (18:01)
--- NOTE | 2017-07-01 18:07 | NUR ---
PAGED DR DAMIR MACIAS, PROMPTED BY DR WILSON'S SEO ANALYST SERVICE
--- NOTE | 2017-07-01 18:15 | NUR ---
DR DAMIR MACIAS ON THE LINE WITH DR KONG
--- NOTE | 2017-07-01 18:17 | NUR ---
PT GIVEN ATIVAN 1 MG IVP
[2017-07-01] MEDS ORDERED: LORAZEPAM INJ 2 MG/ML VIAL ONE ×2 (18:20→23:20)
--- NOTE | 2017-07-01 18:26 | NUR ---
CALLED NURSING CHEERLEADING COACH FOR TELE BED
--- NOTE | 2017-07-01 18:29 | NUR ---
PT HAS LARGE ABD HR 120 NOTIFIED MD PENDING TELE BED
[2017-07-01] MEDS ORDERED: LORAZEPAM INJ 2 MG/ML VIAL IV ONE (18:30)
[2017-07-01 19:07] LABS: APPEARANCE,URINE Clear (CLEAR); BILIRUBIN,URINE Negative (NEGATIVE); BLOOD, URINE Trace-intact Ery/uL (NEGATIVE); COLOR,URINE Yellow (YELLOW); KETONES,URINE Negative (NEGATIVE); LEUKOCYTE ESTERASE ,URINE Trace (NEGATIVE); NITRITE, URINE Negative (NEGATIVE); PH,URINE 6.5 (5.0-8.0); PROTEIN,URINE Negative (NEGATIVE); UGLUCOSE Negative (NEGATIVE); UROBILINOGEN,URINE 0.2 EU/dL (0.2)
[2017-07-01 19:07] LABS: TROPONIN I < 0.017 ng/mL (0.00-0.056)
[2017-07-01 19:23] LABS: BACTERIA,URINE None seen /HPF (None Seen); SQUAMOUS EPITHELIAL CELL,UR Few /HPF (None Seen)
--- NOTE | 2017-07-01 19:48 | NUR ---
DR MACIAS AT BEDSIDE.
--- NOTE | 2017-07-01 19:51 | NUR ---
CALLED NURSING SENIOR PRODUCT ENGINEER TO FOLLOW UP ON TELE BED
--- NOTE | 2017-07-01 20:19 | NUR ---
REPORT GIVEN TO ANASTACIO GONZALEZ FOR TELE ADMISSION AND AJ.
[2017-07-01 20:20] VITALS: BP 136/86
--- NOTE | 2017-07-01 20:27 | NUR ---
TRANSFERRED TO TELE BED 327-2 VIA ALS PROTOCOL, NO INCIDENT NOTED.
[2017-07-01 20:30] VITALS: BP 136/86
[2017-07-01] MEDS ORDERED: diphenhydrAMINE HCL 25 MG CAPSULE PO PRN (20:30)
[2017-07-01] MEDS ORDERED: ACETAMINOPHEN 650 MG/20.3 ML UDC PO PRN (20:30)
[2017-07-01] MEDS ORDERED: HYDROMORPHONE MDV 0.5 MG in IV D5W 50 ML IV PRN (20:30)
[2017-07-01] MEDS ORDERED: HYDROMORPHONE 1 MG/1 ML DISP.SYRIN ONE (20:56)
[2017-07-01] MEDS ORDERED: diphenhydrAMINE HCL 50 MG/ML VIAL ONE (20:57)
[2017-07-01] MEDS: HYDROMORPHONE 1 MG/1 ML DISP.SYRIN IV PRN (21:09)
[2017-07-01] MEDS: ONDANSETRON HCL/PF 4 MG/2 ML VIAL IV PRN (21:09)
[2017-07-01] MEDS: diphenhydrAMINE HCL 50 MG/ML VIAL IV PRN (21:09)
[2017-07-01] MEDS ORDERED: PROPRANOLOL HCL 10 MG TABLET ONE (21:57)
[2017-07-01] MEDS: PROPRANOLOL HCL 10 MG TABLET PO SCH (21:59)
[2017-07-01] MEDS: LORAZEPAM INJ 2 MG/ML VIAL IV PRN (23:23)
[2017-07-02] VITALS (13 sets, daily range): BP systolic 101–117; BP diastolic 60–80
[2017-07-02] MEDS ORDERED: HYDROMORPHONE 1 MG/1 ML DISP.SYRIN ONE (04:08)
[2017-07-02] MEDS: HYDROMORPHONE 1 MG/1 ML DISP.SYRIN IV PRN (04:12)
--- NOTE | 2017-07-02 04:12 | NUR ---
HUMAN SERVICE TECHNICIAN NOTES PAIN MANAGEMENT C/O LEFT SIDE ABDOMINAL PAIN 8/10 PN PAIN SCALE.MEDICATED WITH DILAUDID 0.5MG IVP ORDERED .
[2017-07-02] MEDS ORDERED: diphenhydrAMINE HCL 50 MG/ML VIAL ONE (05:45)
[2017-07-02] MEDS ORDERED: ONDANSETRON HCL/PF 4 MG/2 ML VIAL ONE (05:45)
[2017-07-02] MEDS ORDERED: LORAZEPAM INJ 2 MG/ML VIAL ONE (05:46)
[2017-07-02] MEDS: diphenhydrAMINE HCL 50 MG/ML VIAL IV PRN (05:48)
[2017-07-02] MEDS: LORAZEPAM INJ 2 MG/ML VIAL IV PRN (05:49)
[2017-07-02] MEDS: ONDANSETRON HCL/PF 4 MG/2 ML VIAL IV PRN ×2 (05:49→20:56)
[2017-07-02 06:45] LABS: ALBUMIN 2.1 g/dL (3.4-5.0); BILIRUBIN,TOTAL 1.7 mg/dL (0.2-1.0); CALCIUM, SERUM 7.9 mg/dL (8.5-10.1); CREATININE 1.3 mg/dL (0.6-1.3); MAGNESIUM 1.7 mg/dL (1.8-2.4); POTASSIUM 3.7 mmol/L (3.5-5.1); TOTAL PROTEIN, SERUM 6.7 g/dL (6.4-8.2)
[2017-07-02 06:52] LABS: THYROID STIMULATING HORMONE 3.52 uIU/mL (0.358-3.74)
--- NOTE | 2017-07-02 06:52 | NUR ---
FIELD CONSULTANT NOTES AWAKE & RESPONSIVE. NOT IN ANY DISTRESS. NO SOB NOTED. DENIES ANY PAIN OR DISCOMFORT AT THIS TIME. ON TELE SR @ 76 WITH IV-HL PATENT & INTACT. MONITORED ACCORDINGLY. CALL LIGHT WITHIN REACH. BED IN LOWEST POSITION. SR UP X 2 FOR SAFETY. WILL ENDORSE TO NEXT SHIFT.
[2017-07-02 07:01] LABS: EOSINOPHILS # (AUTO) 0.4 /CMM (0.0-0.7); EOSINOPHILS % (AUTO) 8.9 % (0.0-6.0); HEMATOCRIT 24 % (39-51); HEMOGLOBIN 7.6 g/dL (13.5-17.5); LYMPHOCYTES # (AUTO) 0.8 /CMM (0.8-4.8); MEAN CORPUSCULAR HEMOGLOBIN 23 PG (26.0-33.0); MEAN CORPUSCULAR HGB CONC 32 g/dl (31.0-36.0); MEAN CORPUSCULAR VOLUME 73 fL (80-96); MONOCYTES # (AUTO) 0.3 /CMM (0.1-1.30); NEUTROPHILS # (AUTO) 3.3 /CMM (1.8-8.9); NEUTROPHILS % (AUTO) 69.1 % (43.0-81.0); PLATELET COUNT (AUTO) 60 /CMM (150-450); RDW COEFFICIENT OF VARIATION 26.7 (11.5-15.0); RED BLOOD CELL COUNT(AUTO) 3.29 MIL/uL (4.5-6.0); WHITE BLOOD COUNT (AUTO) 4.8 K/uL (4.3-11.0)
--- NOTE | 2017-07-02 07:30 | NUR ---
VIDEO SYSTEMS ENGINEER NOTES SPOKE WITH DR MACIAS. NOTIFIED MD ABOUT [facility] TO DOSE. OK PER MD TO START TODAY. ORDERS NOTED AND CARRIED OUT.
--- NOTE | 2017-07-02 07:47 | NUR ---
MARKETING COMMUNICATIONS LEADER OPENING NOTE RECEIVED REPORT ON THE PATIENT. PATIENT IS ASLEEP IN BED. CHEST RISING EQUALLY BILATRERALLY, BNO APPARENT SIGN OF DISTRESS. FACE IS SYMMETRICAL BREATHING NON-LABORED. UPDATED THE BOARD. WILL RERUN IN 15 MINUTES TO INTRODUCE SELF IF PATIENT IS AWAKE.
[2017-07-02] MEDS: LEVOTHYROXINE SODIUM 25 MCG TABLET PO SCH (08:29)
[2017-07-02] MEDS: CALCIUM CARBONATE (1250) 500 MG TABLET PO SCH (08:31)
[2017-07-02] MEDS: FUROSEMIDE 40 MG TABLET PO SCH (08:31)
[2017-07-02] MEDS: MAGNESIUM OXIDE 400 MG TABLET PO SCH ×2 (08:31→16:01)
[2017-07-02] MEDS: PROPRANOLOL HCL 10 MG TABLET PO SCH ×2 (08:32→20:48)
[2017-07-02] MEDS: BUPROPION XL 150 MG TAB.ER.24 PO SCH (08:32)
[2017-07-02] MEDS: PANTOPRAZOLE 40 MG TABLET.DR PO SCH (08:33)
[2017-07-02] MEDS: RIFAXIMIN 550 MG TABLET PO SCH ×2 (08:33→16:01)
[2017-07-02] MEDS: SPIRONOLACTONE 25 MG TABLET PO SCH (08:33)
[2017-07-02] MEDS: PIPERACILLIN /TAZOBACTAM 3.375 G in IV D5W 50 ML IV SCH ×3 (08:35→18:00)
[2017-07-02 08:40] LABS: EOSINOPHILS % (MANUAL) 9 % (0-4); LYMPHOCYTES % (MANUAL) 15 % (16-48); MONOCYTES % (MANUAL) 3 % (0-11.0); NEUTROPHILS % (MANUAL) 73 (42-76)
--- NOTE | 2017-07-02 11:13 | NUR ---
GLOVE STITCHER NOTE SPOKE TO DR JACKSON AT THE BEDSIDE. REPORTED ABNORMAL LABS, H&H, PATIENT'S CONDITION AND RESPONSE TO TREATMENT PLAN. NO NEW ORDERS RECEIVED AT THIS TIME. AWAITING FOR NEW ORDERS FROM DR. JACKSON.
[2017-07-02] MEDS: Magnesium 1GM/D5W 100ML PREMIX 100 ML IV SCH ×2 (12:30→12:32)
[2017-07-02] MEDS: CYCLOBENZAPRINE 10 MG TABLET PO PRN ×2 (12:36→20:49)
[2017-07-02] MEDS ORDERED: ALBUTEROL FS 2.5 MG/3 ML VIAL.NEB NEB PRN (13:30)
--- NOTE | 2017-07-02 16:21 | NUR ---
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 DR JACKSON DIRECTED TO COMMUNICATE THE INFORMATION TO DR. WILSON AND FOLLOW UP FOR A POSSIBLE ORDER FOR AN EGD. NO NEW ORDERS AT THIS TIME. WILL COMMUNICATE TO ONCOMING SHIFT.
--- NOTE | 2017-07-02 17:28 | NUR ---
CHANNEL DEVELOPMENT DIRECTOR NOTES BLOOD TRANSFUSION ENDED AT 1700. VS TAKEN POST TRANSFUSION
--- NOTE | 2017-07-02 18:31 | NUR ---
FUR POLISHER NOTES [facility] GIVEN ONCE PATIENT COMPLETED WITH BLOOD TRANSFUSION. 1200 TIME GIVEN DURING 1800 TIME. PER PHARMACY NON ADMIN 1800 TIME AND CONTINUE SCHEDULED
[2017-07-02] MEDS: MAGNESIUM HYDROXIDE 30 ML UDC PO SCH (18:50)
--- NOTE | 2017-07-02 18:52 | NUR ---
PUPPET DEVELOPER NOTES 1230 MAG NON ADMIN I AM UNABLE TO PULL OUT OF PYXIS. MANJEET FROM PHARMACY ORDERED REPLACEMENT 1900 SO I AM ABLE TO HANG MEDICATION ORDERED.
[2017-07-02] MEDS ORDERED: Magnesium 1GM/D5W 100ML PREMIX 100 ML IV SCH (19:00)
--- NOTE | 2017-07-02 19:17 | NUR ---
PBX OPERATOR CLOSING NOTE PATIENT IS ASLEEP IN BED. BED IS IN LOWEST POSITION, LOCKED, SIDE RAILS UP X2, FOWLERS POSITION. URINAL, CALL LIGHT AND ALL NEEDS WITHIN REACH. PATIENT DOES NOT PRESENT WITH ANY SIGHS OF DYSTRESS. CHEST RISING EQUALLY BILATERALLY. MOM-LABORED BREATHING. PATIENT ON EXTERNAL MONITOR. SINUS RHYTHM HR 76. WILL GIVE REPORT AND ENDORSE TO THE NEXT SHIFT FOR CONTINUATION OF CARE.
--- NOTE | 2017-07-02 19:40 | NUR ---
RN OPENING NOTES RECEIVED REPORT FROM TERE RNPERCY. FOUND Pt ASLEEP IN BED. EQUAL CHEST RISE AND FALL. NO S/S OF ACUTE DISTRESS OR SOB NOTED. Pt IS A/OX3, LETHARGIC. ON TELE, NSR-TACHY. IV ACCESS ON RAC #20G. SCHEDULED FOR A PARACENTESIS ON 07/03 CONSENT SIGNED. SAFETY MEASURES IN PLACE. BED LOW, LOCKED, HOB ELEVATED, SIDE RAILS UP, CALL LIGHT AND BEDSIDE TABLE WITHIN REACH. WILL CONTINUE TO MONITOR Pt THROUGHOUT THE NIGHT.
[2017-07-03] MEDS: PIPERACILLIN /TAZOBACTAM 3.375 G in IV D5W 50 ML IV SCH ×4 (00:18→17:14)
[2017-07-03 04:00] VITALS: BP 100/61
[2017-07-03] MEDS: CYCLOBENZAPRINE 10 MG TABLET PO PRN ×3 (06:17→23:17)
[2017-07-03 06:45] LABS: INR 1.41 (0.87-1.13); PROTHROMBIN TIME 15.4 SECS (9.5-12.7)
--- NOTE | 2017-07-03 06:46 | NUR ---
RN CLOSING NOTES NO SIGNIFICANT CHANGES IN Pt's CONDITION. NO S/S OF ACUTE DISTRESS OR SOB NOTED DURING THE NIGHT. ALL NEEDS MET AND ATTENDED TO. SAFETY MEASURES IN PLACE. TELE READING SR 75 W/PVC's & PAC's. WILL ENDORSE TO DAYSHIFT RN FOR Pt's AJ.
[2017-07-03 06:59] LABS: ALBUMIN 1.7 g/dL (3.4-5.0); BILIRUBIN,TOTAL 2.1 mg/dL (0.2-1.0); CALCIUM, SERUM 7.6 mg/dL (8.5-10.1); CREATININE 1.5 mg/dL (0.6-1.3); MAGNESIUM 1.9 mg/dL (1.8-2.4); POTASSIUM 3.6 mmol/L (3.5-5.1); TOTAL PROTEIN, SERUM 6.1 g/dL (6.4-8.2)
[2017-07-03 07:04] LABS: EOSINOPHILS # (AUTO) 0.4 /CMM (0.0-0.7); EOSINOPHILS % (AUTO) 10.5 % (0.0-6.0); HEMATOCRIT 26 % (39-51); HEMOGLOBIN 8.4 g/dL (13.5-17.5); LYMPHOCYTES # (AUTO) 0.5 /CMM (0.8-4.8); LYMPHOCYTES % (AUTO) 14.5 % (20.0-44.0); MEAN CORPUSCULAR HEMOGLOBIN 24 PG (26.0-33.0); MEAN CORPUSCULAR HGB CONC 33 g/dl (31.0-36.0); MEAN CORPUSCULAR VOLUME 74 fL (80-96); MONOCYTES # (AUTO) 0.4 /CMM (0.1-1.30); MONOCYTES % (AUTO) 11.9 % (2.0-12.0); NEUTROPHILS # (AUTO) 2.4 /CMM (1.8-8.9); NEUTROPHILS % (AUTO) 63.1 % (43.0-81.0); PLATELET COUNT (AUTO) 62 /CMM (150-450); RDW COEFFICIENT OF VARIATION 27.2 (11.5-15.0); RED BLOOD CELL COUNT(AUTO) 3.48 MIL/uL (4.5-6.0); WHITE BLOOD COUNT (AUTO) 3.8 K/uL (4.3-11.0)
--- NOTE | 2017-07-03 07:58 | NUR ---
RN NOTES RECEIVED PT. PT IS AWAKE IN BED. A/O X 3. PT IS LETHARGIC. NO S/S OF DISTRESS OR SOB. PT C/O PAIN, WILL CONTINUE TO MANAGE PAIN. PT IS ON TELE MONITOR, SR WITH PVCS AND PACS. PT IS ON A 1.5 L FLUID RESTRICTION. IV ACCESS LOCATED ON RIGHT AC, 20 G KVO RATE. SAFETY MEASURES IN PLACE, CALL LIGHT WITHIN REACH. WILL CONTINUE TO MONITOR.
[2017-07-03 08:00] VITALS: BP 107/65
[2017-07-03] MEDS: SPIRONOLACTONE 25 MG TABLET PO SCH (08:23)
[2017-07-03] MEDS: LEVOTHYROXINE SODIUM 25 MCG TABLET PO SCH (08:24)
[2017-07-03] MEDS: BUPROPION XL 150 MG TAB.ER.24 PO SCH (08:24)
[2017-07-03] MEDS: FUROSEMIDE 40 MG TABLET PO SCH (08:24)
[2017-07-03] MEDS: MAGNESIUM OXIDE 400 MG TABLET PO SCH ×2 (08:24→16:24)
[2017-07-03] MEDS: RIFAXIMIN 550 MG TABLET PO SCH ×2 (08:24→16:24)
[2017-07-03] MEDS: PANTOPRAZOLE 40 MG TABLET.DR PO SCH (08:24)
[2017-07-03] MEDS: CALCIUM CARBONATE (1250) 500 MG TABLET PO SCH (08:25)
[2017-07-03] MEDS: PROPRANOLOL HCL 10 MG TABLET PO SCH ×2 (09:00→22:16)
[2017-07-03 09:19] LABS: EOSINOPHILS % (MANUAL) 8 % (0-4); LYMPHOCYTES % (MANUAL) 5 % (16-48); MONOCYTES % (MANUAL) 2 % (0-11.0); NEUTROPHILS % (MANUAL) 85 (42-76)
--- NOTE | 2017-07-03 10:48 | NUR ---
RN NOTES AM BLOOD PRESSURE MEDICATION HELD PER LOW BP.
[2017-07-03 12:00] VITALS: BP 101/54
[2017-07-03] MEDS ORDERED: ALBUMIN 25% 25 GM in PREMIX 1 EA IV ONE (12:00)
[2017-07-03] MEDS ORDERED: ALBUMIN 25% 12.5 GM in PREMIX 1 EA IV SCH (12:00)
--- NOTE | 2017-07-03 12:00 | NUR ---
RN NOTES PARACENTESIS COMPLETED WITH 5L OF OUTPUT, BP POST PROCEDURE AT 101/54.
[2017-07-03] MEDS: HYDROMORPHONE 1 MG/1 ML DISP.SYRIN IV PRN ×2 (12:30→17:31)
[2017-07-03 16:00] VITALS: BP 98/54
[2017-07-03] MEDS: MAGNESIUM HYDROXIDE 30 ML UDC PO SCH (17:14)
--- NOTE | 2017-07-03 19:13 | NUR ---
RN CLOSING NOTE PT IN BED AWAKE. NO S/S OF DISTRESS OR SOB. NO C/O PAIN. ALL PATIENT NEEDS MET. SAFETY MEASURES IN PLACE. CALL LIGHT WITHIN REACH. WILL ENDORSE TO CADASTRAL SURVEYOR FOR AJ.
--- NOTE | 2017-07-03 19:39 | NUR ---
RN OPENING NOTES RECEIVED REPORT FROM TERE RNYENI. FOUND Pt AWAKE IN BED WATCHING TV. NO S/S OF ACUTE DISTRESS OR SOB NOTED. Pt IS A/OX3, VERBAL, ABLE TO MAKE NEEDS KNOWN. IV ACCESS ON RAC #20G, TKO. PARACENTESIS DONE TODAY, WITH 6.5L OUTPUT. SAFETY MEASURES IN PLACE. BED LOW, LOCKED, HOB ELEVATED, SIDE RAILS UP, CALL LIGHT AND BEDSIDE TABLE WITHIN REACH. WILL CONTINUE TO MONITOR Pt THROUGHOUT THE NIGHT.
[2017-07-03 20:00] VITALS: BP_SYST 95; BP_SYST 97; BP_DIAS 54; BP_DIAS 57
[2017-07-03] MEDS: diphenhydrAMINE HCL 50 MG/ML VIAL IV PRN (22:15)
[2017-07-04] MEDS: PIPERACILLIN /TAZOBACTAM 3.375 G in IV D5W 50 ML IV SCH ×4 (00:16→17:35)
[2017-07-04] MEDS: LORAZEPAM INJ 2 MG/ML VIAL IV PRN (00:16)
--- NOTE | 2017-07-04 06:35 | NUR ---
RN CLOSING NOTES NO SIGNIFICANT CHANGES IN Pt's CONDITION DURING SHIFT. NO S/S OF ACUTE DISTRESS OR SOB NOTED DURING THE NIGHT. ALL NEEDS MET AND ATTENDED TO. SAFETY MEASURES CARRIED OUT. WILL ENDORSE TO DAYSHIFT RN FOR Pt's AJ.
[2017-07-04] MEDS: CYCLOBENZAPRINE 10 MG TABLET PO PRN ×2 (06:55→17:26)
[2017-07-04] MEDS: LEVOTHYROXINE SODIUM 25 MCG TABLET PO SCH (06:55)
--- NOTE | 2017-07-04 07:27 | NUR ---
AM RN NOTE Received patient sleeping comfortably in his bed no acute distress noted. No SOB noted resp even and non-labored. IV site intact and patent. Bed in low locked position. Will continue to monitor. On fluids restriction 1.5 L daily.
[2017-07-04 08:00] VITALS: BP 94/55
[2017-07-04] MEDS: RIFAXIMIN 550 MG TABLET PO SCH ×2 (08:53→17:26)
[2017-07-04] MEDS: CALCIUM CARBONATE (1250) 500 MG TABLET PO SCH (08:53)
[2017-07-04] MEDS: PANTOPRAZOLE 40 MG TABLET.DR PO SCH (08:53)
[2017-07-04] MEDS: MAGNESIUM OXIDE 400 MG TABLET PO SCH ×2 (08:53→17:26)
[2017-07-04] MEDS: FUROSEMIDE 40 MG TABLET PO SCH (08:53)
[2017-07-04] MEDS: BUPROPION XL 150 MG TAB.ER.24 PO SCH (08:53)
[2017-07-04] MEDS: PROPRANOLOL HCL 10 MG TABLET PO SCH ×2 (08:55→22:03)
[2017-07-04] MEDS: SPIRONOLACTONE 25 MG TABLET PO SCH (08:55)
[2017-07-04] MEDS ORDERED: ALBUMIN 25% 12.5 GM in PREMIX 1 EA IV ONE (09:00)
[2017-07-04 16:00] VITALS: BP 96/59
[2017-07-04] MEDS: MAGNESIUM HYDROXIDE 30 ML UDC PO SCH (17:26)
--- NOTE | 2017-07-04 18:56 | NUR ---
AM RN NOTE Patient resting in his bed, no acute distress noted. Will endorse care to next shift.
--- NOTE | 2017-07-04 19:45 | NUR ---
RN OPENING NOTES RECEIVED REPORT FROM TERE RNSHAYNA. FOUND Pt ASLEEP IN BED, EASILY AWAKENED. NO S/S OF ACUTE DISTRESS OR SOB NOTED. Pt IS A/OX3, VERBAL, ABLE TO MAKE NEEDS KNOWN. IV ACCESS ON RAC #20G, TKO. SAFETY MEASURES IN PLACE. BED LOW, LOCKED, HOB ELEVATED, SIDE RAILS UP, CALL LIGHT AND BEDSIDE TABLE WITHIN REACH. WILL CONTINUE TO MONITOR Pt THROUGHOUT THE NIGHT.
[2017-07-04 20:00] VITALS: BP 95/60
[2017-07-05] MEDS: CYCLOBENZAPRINE 10 MG TABLET PO PRN (03:17)
--- NOTE | 2017-07-05 06:57 | NUR ---
RN CLOSING NOTES NO SIGNIFICANT CHANGES IN Pt's CONDITION. NO S/S OF ACUTE DISTRESS OR SOB NOTED DURING THE NIGHT. ALL NEEDS MET AND ATTENDED TO. SAFETY MEASURES IN PLACE. WILL ENDORSE TO DAYSHIFT RN FOR Pt's AJ.
[2017-07-05 07:05] LABS: CALCIUM, SERUM 7.5 mg/dL (8.5-10.1); CREATININE 1.3 mg/dL (0.6-1.3); POTASSIUM 3.9 mmol/L (3.5-5.1)
--- NOTE | 2017-07-05 07:30 | NUR ---
MS RN NOTES RECEIVED REPORT WITH PATIENT A/OX4. NO S/S OF DISTRESS OR SOB. IV PATENT AND INTACT. PATIENT NPO. CALL LIGHT WITHIN REACH. BED IS IN LOW, LOCKED POSITION. WILL CONTINUE TO MONITOR THROUGHOUT SHIFT
[2017-07-05 08:00] VITALS: BP 92/50
[2017-07-05] MEDS: diphenhydrAMINE HCL 50 MG/ML VIAL IV PRN ×2 (09:25→22:23)
[2017-07-05] MEDS: MAGNESIUM OXIDE 400 MG TABLET PO SCH ×2 (09:26→17:24)
[2017-07-05] MEDS: PANTOPRAZOLE 40 MG TABLET.DR PO SCH (09:26)
[2017-07-05] MEDS: RIFAXIMIN 550 MG TABLET PO SCH ×2 (09:26→17:24)
[2017-07-05] MEDS: FUROSEMIDE 40 MG TABLET PO SCH (09:26)
[2017-07-05] MEDS: BUPROPION XL 150 MG TAB.ER.24 PO SCH (09:26)
[2017-07-05] MEDS: SPIRONOLACTONE 25 MG TABLET PO SCH (09:26)
[2017-07-05] MEDS: LEVOTHYROXINE SODIUM 25 MCG TABLET PO SCH (09:32)
[2017-07-05] MEDS: PROPRANOLOL HCL 10 MG TABLET PO SCH ×2 (10:46→21:32)
[2017-07-05] MEDS: HYDROMORPHONE 1 MG/1 ML DISP.SYRIN IV PRN ×3 (13:52→22:23)
[2017-07-05] MEDS ORDERED: GADOVERSETAMIDE 5 MMOL/10 ML VIAL IJ ONE (14:47)
[2017-07-05 16:00] VITALS: BP 121/75
--- NOTE | 2017-07-05 16:45 | NUR ---
MS RN NOTES PAGED DR. MAST. AWAITING RESPONSE. WILL CONTINUE TO MONITOR
[2017-07-05] MEDS: MAGNESIUM HYDROXIDE 30 ML UDC PO SCH (17:24)
--- NOTE | 2017-07-05 18:00 | NUR ---
MS RN NOTES NO RESPONSE FROM DR. MAST. VM LEFT. SPOKE TO CHARGE NURSE. PATIENT WILL BE NPO FOR NOW
--- NOTE | 2017-07-05 19:00 | NUR ---
MS RN NOTES PATIENT A/OX4. NO DISTRESS OR SOB. ALL PATIENT NEEDS HAVE BEEN MET THROUGHOUT SHIFT. IV PATENT AND INTACT. CALL LIGHT WITHIN REACH. WILL ENDORSE TO PM SHIFT.
--- NOTE | 2017-07-05 19:05 | NUR ---
MS RN OPENING NOTES: RECEIVED PT IN BED AND IS AWAKE, RESTING IN BED. PT IS A/OX4. NO S/S OF DISTRESS OR SOB. IV PATENT AND INTACT ON R AC #20G. PT IS CURRENTLY H/L. PATIENT REMAINS NPO FOR NOW. CALL LIGHT WITHIN PT'S REACH. BED KEPT IN LOW, LOCKED POSITION, AND SIDE RAILS X 2 UP. WILL CONTINUE TO MONITOR PT.
[2017-07-05 20:00] VITALS: BP 107/67
--- NOTE | 2017-07-05 20:10 | NUR ---
MS RN NOTES: CALLED DR. MAST'S OFFICE AND LEFT A VOICEMAIL IN REGARDS TO PT'S NPO STATUS.
--- NOTE | 2017-07-05 20:37 | NUR ---
MS RN NOTES: DR. MAST CALLED BACK AND SAID IT IS OKAY FOR PT TO BE RESUMED ON REGULAR DIET. ALSO INFORMED DR ABOUT MRI RESULTS.
--- NOTE | 2017-07-05 22:23 | NUR ---
MS RN NOTES: PT COMPLAINED OF 9/10 AB PAIN. PT WAS ADMINISTERED DILAUDID AND WITH BENADRYL IV WELL. WILL CONTINUE TO MONITOR PT.
[2017-07-06] MEDS: diphenhydrAMINE HCL 50 MG/ML VIAL IV PRN ×3 (02:41→20:04)
[2017-07-06] MEDS: HYDROMORPHONE 1 MG/1 ML DISP.SYRIN IV PRN ×4 (02:41→20:05)
--- NOTE | 2017-07-06 02:41 | NUR ---
MS RN NOTES: PT COMPLAINED OF 10/10 ABDOMINAL PAIN. PT WAS ADMINISTERED DILAUDID WITH BENADRYL IV. WILL CONTINUE TO MONITOR PT.
--- NOTE | 2017-07-06 07:30 | NUR ---
MS RN CLOSING NOTES: ALL NEEDS WERE ATTENDED AND ANTICIPATED FOR. PT IS RESTING IN BED. PT IS A/OX4. NO S/S OF DISTRESS OR SOB. IV PATENT AND INTACT ON R AC #20G. PT IS CURRENTLY H/L. CALL LIGHT WITHIN PT'S REACH. BED KEPT IN LOW, LOCKED POSITION, AND SIDE RAILS X 2 UP. TOTAL FLUID INTAKE WAS 800. THIS MORNING, PT HAD A TOTAL OF 125ML INTAKE. ENDORSED TO AM NURSE FOR AJ.
[2017-07-06 08:00] VITALS: BP 96/60
--- NOTE | 2017-07-06 08:00 | NUR ---
MS RN NOTES RECEIVED REPORT WITH PATIENT IN STABLE CONDITION. PATIENT IS A/OX4. NO S/S OF SOB OR DISTRESS. IV IS PATENT AND INTACT, CALL LIGHT IS WITHIN REACH. SAFETY MEASURES IMPLEMENTED. WILL CONTINUE TO MONITOR THROUGHOUT SHIFT.
[2017-07-06] MEDS: RIFAXIMIN 550 MG TABLET PO SCH ×2 (09:38→17:15)
[2017-07-06] MEDS: MAGNESIUM OXIDE 400 MG TABLET PO SCH ×2 (09:38→17:15)
[2017-07-06] MEDS: LEVOTHYROXINE SODIUM 25 MCG TABLET PO SCH (09:38)
[2017-07-06] MEDS: FUROSEMIDE 40 MG TABLET PO SCH (09:39)
[2017-07-06] MEDS: SPIRONOLACTONE 25 MG TABLET PO SCH (09:39)
[2017-07-06] MEDS: PANTOPRAZOLE 40 MG TABLET.DR PO SCH (09:39)
[2017-07-06] MEDS: PROPRANOLOL HCL 10 MG TABLET PO SCH ×2 (09:39→20:43)
[2017-07-06] MEDS: BUPROPION XL 150 MG TAB.ER.24 PO SCH (09:39)
[2017-07-06] MEDS ORDERED: LACTULOSE 10 G/15 ML UDC (PYXIS) PO PRN (15:30)
[2017-07-06 16:00] VITALS: BP 96/58
[2017-07-06] MEDS: MAGNESIUM HYDROXIDE 30 ML UDC PO SCH (17:14)
[2017-07-06] MEDS: DOCUSATE SODIUM 100 MG CAPSULE PO SCH (17:16)
--- NOTE | 2017-07-06 18:53 | NUR ---
MS RN NOTES PATIENT A/OX4, NO S/S OF SOB OR DISTRESS. IV PATENT AND INTACT. ALL PATIENT NEEDS HAVE BEEN MET. BED IS IN LOW, LOCKED POSITION. CALL LIGHT WITHIN REACH. WILL ENDORSE CARE TO PM SHIFT.
[2017-07-06 20:00] VITALS: BP 102/64
[2017-07-07] MEDS: diphenhydrAMINE HCL 50 MG/ML VIAL IV PRN ×4 (00:55→20:15)
[2017-07-07] MEDS: HYDROMORPHONE 1 MG/1 ML DISP.SYRIN IV PRN ×5 (00:55→21:47)
--- NOTE | 2017-07-07 06:30 | NUR ---
MS RN NOTES AWAKE & RESPONSIVE. NOT IN ANY DISTRESS. NO SOB NOTED. DENIES ANY PAIN OR DISCOMFORT AT THIS TIME. WITH IV-HL PATENT & INTACT. MONITORED ACCORDINGLY. CALL LIGHT WITHIN REACH. BED IN LOWEST POSITION. SR UP X2 FOR SAFETY. WILL ENDORSE TO NEXT SHIFT.
--- NOTE | 2017-07-07 07:45 | NUR ---
RN NOTES RECEIVED PT LYING DOWN IN BED, AWAKE, HOB ELEVATED, NO SOB OR DISTRESS NOTED. PT A/O X 4 VERBALLY RESPONSIVE AND ABLE TO MAKE TO NEEDS KNOWN. IV INTACT AND PATENT. KEPT PATIENT CLEAN AND COMFORTABLE IN BED, CALL LIGHT WITHIN PATIENT REACH. WILL CONTINUE TO MONITOR ACCORDINGLY.
[2017-07-07 08:00] VITALS: BP 98/57
[2017-07-07] MEDS: BUPROPION XL 150 MG TAB.ER.24 PO SCH (09:15)
[2017-07-07] MEDS: DOCUSATE SODIUM 100 MG CAPSULE PO SCH ×2 (09:16→17:11)
[2017-07-07] MEDS: FUROSEMIDE 40 MG TABLET PO SCH (09:16)
[2017-07-07] MEDS: RIFAXIMIN 550 MG TABLET PO SCH ×2 (09:17→17:11)
[2017-07-07] MEDS: LEVOTHYROXINE SODIUM 25 MCG TABLET PO SCH (09:17)
[2017-07-07] MEDS: MAGNESIUM OXIDE 400 MG TABLET PO SCH ×2 (09:17→17:11)
[2017-07-07] MEDS: SPIRONOLACTONE 25 MG TABLET PO SCH (09:17)
[2017-07-07] MEDS: PANTOPRAZOLE 40 MG TABLET.DR PO SCH (09:17)
[2017-07-07] MEDS: PROPRANOLOL HCL 10 MG TABLET PO SCH ×2 (09:21→21:38)
--- NOTE | 2017-07-07 11:35 | NUR ---
RN NOTES PATIENT IS LYING DOWN IN BED WITH NO SOB OR DISTRESS NOTED.
--- NOTE | 2017-07-07 14:25 | NUR ---
RN NOTES DR. KATIE YOUNG WANTS TO DISCHARGE THE PATIENT TO SNF.
[2017-07-07] MEDS: SOD FERRIC GLUC 125 MG in IV NS 0.9% 100 ML IV SCH (15:07)
[2017-07-07 16:00] VITALS: BP 97/56
[2017-07-07] MEDS: MAGNESIUM HYDROXIDE 30 ML UDC PO SCH (17:11)
--- NOTE | 2017-07-07 18:49 | NUR ---
RN CLOSING NOTES ALL NEEDS PROVIDED, ATTENDED AND ANTICIPATED. KEPT PATIENT CLEAN AND COMFORTABLE IN BED. CALL LIGHT WITHIN PATIENT REACH, WILL CONTINUE TO MONITOR ACCORDINGLY. ENDORSED TO NEXT SHIFT RN TO CONTINUE CARE.
--- NOTE | 2017-07-07 19:30 | NUR ---
MS RN OPENING NOTES: PATIENT IN BED, AOX4, ON ROOM AIR, BREATHING EVEN AND UNLABORED. BREATH SOUNDS CLEAR AT UPPER LUNG [place], DIMINISHED OVER LOWER LUNG [place]. PIV OVER LAC G 2 INTACT AND PATENT TO FLUSH. NOTED DISTENDED ABDOMEN. PATIENT COMPLAINS OF 7-8/10 PAIN, PULLING QUALITY OVER ABDOMINAL AREA. PROVIDED FOR COMFORT AND SAFETY. WILL CONT TO MONITOR.
[2017-07-07 20:00] VITALS: BP 97/60
--- NOTE | 2017-07-07 20:18 | NUR ---
RN NOTES: PT COMPLAINED OF ITCHING AND REQUESTED FOR DIPHNHYDRAMINE, 0.25 MG IV PRN GIVEN.
[2017-07-07] MEDS: ONDANSETRON HCL/PF 4 MG/2 ML VIAL IV PRN (21:38)
--- NOTE | 2017-07-07 21:38 | NUR ---
RN NOTES: ADMINISTERED ZOFRAN 4 MG IV PRN FOR NAUSEA. NO EPISODE OF VOMITING NOTED.
--- NOTE | 2017-07-07 21:47 | NUR ---
RN NOTES: PATIENT COMPLAINED OF 8/10 PAIN OVER ANTERIOR ABDOMEN, DESCRIBED PULLING. ADMINISTERED DILAUDID 0.25 MG IV PRN. WILL CONT TO MONITOR.
[2017-07-08 03:45] VITALS: BP 92/57
--- NOTE | 2017-07-08 07:00 | NUR ---
MS RN CLOSING NOTES: PATIENT IN BED, AOX4, ON ROOM AIR, BREATHING EVEN AND UNLABORED. PIV OVER LAC G 22 INTACT AND PATENT TO FLUSH, NO SIGNS OF INFILTRATION, REDNESS OR SWELLING NOTED. DUE MEDS GIVEN. PROVIDED FOR COMFORT AND SAFETY. NO ACUTE CHANGE IN CONDITION NOTED THROUGH SHIFT. REMAINS TO BE IN CLOSE MONITORING. WILL ENDORSE TO AM RN FOR AJ.
[2017-07-08 08:00] VITALS: BP 100/65
[2017-07-08] MEDS: RIFAXIMIN 550 MG TABLET PO SCH (08:07)
[2017-07-08] MEDS: MAGNESIUM OXIDE 400 MG TABLET PO SCH (08:07)
[2017-07-08] MEDS: DOCUSATE SODIUM 100 MG CAPSULE PO SCH (08:08)
[2017-07-08] MEDS: PANTOPRAZOLE 40 MG TABLET.DR PO SCH (08:08)
[2017-07-08] MEDS: LEVOTHYROXINE SODIUM 25 MCG TABLET PO SCH (08:08)
[2017-07-08] MEDS: BUPROPION XL 150 MG TAB.ER.24 PO SCH (08:08)
[2017-07-08] MEDS: SPIRONOLACTONE 25 MG TABLET PO SCH (08:08)
[2017-07-08] MEDS: FUROSEMIDE 40 MG TABLET PO SCH (08:08)
[2017-07-08] MEDS: PROPRANOLOL HCL 10 MG TABLET PO SCH (08:15)
--- NOTE | 2017-07-08 09:45 | NUR ---
RN NOTES PATIENT IS LYING DOWN IN BED WITH NO SOB OR DISTRESS NOTED.
[2017-07-08] MEDS: SOD FERRIC GLUC 125 MG in IV NS 0.9% 100 ML IV SCH (14:00)
[2017-07-08 15:56] VITALS: BP 96/58
--- NOTE | 2017-07-08 16:35 | NUR ---
RN NOTES DISCHARGE INSTRUCTIONS GIVEN TO PATIENT AND ABLE TO UNDERSTAND INSTRUCTIONS. BELONGINGS LIST SIGNED. PATIENT LEFT WALKING IN STABLE CONDITION WITH NO SOB OR DISTRESS NOTED. VITALS SIGNS CHECKED AND RECORDED. MD AND CHARGE NURSE AWARE.
== END 2017-07-08 16:49 | disposition home or self-care (01) | DRG 264 ==
LOC: ER 16:11 → TELE 20:33 → MED 07-03 18:03
PROVIDERS: ADMIT Internal Medicine; ATTEND Internal Medicine
PROC: 0W9G3ZX Drainage of Peritoneal Cavity, Percutaneous Approach, Diagnostic (ICD-10-PCS; principal; 2017-07-03)
DX: K70.31 Alcoholic cirrhosis of liver with ascites (principal); I81 Portal vein thrombosis; I82.0 Budd-Chiari syndrome; K65.9 Peritonitis, unspecified; D61.818 Other pancytopenia; D68.9 Coagulation defect, unspecified; N17.9 Acute kidney failure, unspecified; K76.6 Portal hypertension; Z76.82 Awaiting organ transplant status; K72.90 Hepatic failure, unspecified without coma; D64.9 Anemia, unspecified; E03.9 Hypothyroidism, unspecified; Z88.5 Allergy status to narcotic agent; Z91.011 Allergy to milk products; Z82.3 Family history of stroke; Z86.718 Personal history of other venous thrombosis and embolism; Z91.19 Patient's noncompliance with other medical treatment and regimen; Z91.14 Patient's other noncompliance with medication regimen; D50.9 Iron deficiency anemia, unspecified; D73.1 Hypersplenism; E88.09 Other disorders of plasma-protein metabolism, not elsewhere classified; F32.9 Major depressive disorder, single episode, unspecified; F41.9 Anxiety disorder, unspecified; J44.9 Chronic obstructive pulmonary disease, unspecified; G47.00 Insomnia, unspecified; K59.00 Constipation, unspecified; I85.10 Secondary esophageal varices without bleeding; Z72.0 Tobacco use; E53.8 Deficiency of other specified B group vitamins; Z98.84 Bariatric surgery status; E66.9 Obesity, unspecified; Z68.30 Body mass index [BMI] 30.0-30.9, adult
CPT/HCPCS: 36415; 71010-TC; 74183-TC; 76705-TC; 76942-TC; 80048-TC; 80053-TC; 80076-TC; 80305; 81000-TC; 82105; 82140-TC; 82728-TC; 82746; 83540-TC; 83605-TC; 83690-TC; 83735-TC; 84100-TC; 84443-TC; 84484-TC; 85025-TC; 85610-TC; 85730-TC; 86706; 86803; 86850-TC; 86921-TC; 87070-TC; 87081-TC; 87340; 88305-TC; 88312-TC; 89051-TC; A4216; A4606; A9579; C9113; J1170; J1200; J1940; J2060; J2405; J2543; J2916; J3475; J7030; J7050; J7060; P9016-BL; P9047; Z7610

== ENCOUNTER 2017-07-21 10:29 | Emergency (ER) | payer MEDICAID ==
[~2017-07-21] VITALS: Ht 175.3 cm; Wt 99.8 kg
[~2017-07-21 10:29] MED LIST changes: +POTA8TAB8 PO; +ZOLP10TA2 PO
--- NOTE | 2017-07-21 10:40 | NUR ---
PT A&OX4, BROUGHT BY SELF C/O ABD DISTENTION; LAST PARACENTESIS X2 DAYS AGO; BREATHING EVEN AND UNLABORED, NON-DIAPHORETIC, SKIN WARM TO TOUCH, NO N/V NOTED. L FA #[id number] INSERTED. AWAITING MD RIVERO
[2017-07-21] MEDS ORDERED: KETOROLAC TROMETHAMINE INJ 30 MG/ML VIAL IV ONE (11:30)
[2017-07-21] MEDS ORDERED: ONDANSETRON HCL/PF 4 MG/2 ML VIAL IVP ONE (11:30)
--- NOTE | 2017-07-21 11:30 | NUR ---
PARACENTESIS RECOMMENDED BY MD, CONSENT SIGNED BY PT
[2017-07-21 11:33] LABS: HEMATOCRIT 27 % (39-51); HEMOGLOBIN 8.7 g/dL (13.5-17.5); MEAN CORPUSCULAR HEMOGLOBIN 25 PG (26.0-33.0); MEAN CORPUSCULAR HGB CONC 32 g/dl (31.0-36.0); MEAN CORPUSCULAR VOLUME 78 fL (80-96); PLATELET COUNT (AUTO) 59 /CMM (150-450); RED BLOOD CELL COUNT(AUTO) 3.45 MIL/uL (4.5-6.0); WHITE BLOOD COUNT (AUTO) 3.5 K/uL (4.3-11.0)
[2017-07-21] MEDS ORDERED: KETOROLAC TROMETHAMINE 15 MG/ML VIAL ONE (11:36)
[2017-07-21] MEDS ORDERED: ONDANSETRON HCL/PF 4 MG/2 ML VIAL ONE (11:36)
[2017-07-21 11:42] LABS: CALCIUM, SERUM 7.5 mg/dL (8.5-10.1); CREATININE 1.4 mg/dL (0.6-1.3); POTASSIUM 3.7 mmol/L (3.5-5.1)
[2017-07-21 11:43] LABS: INR 1.4 (0.87-1.13); PROTHROMBIN TIME 14.9 SECS (9.5-12.7)
[2017-07-21 11:48] LABS: ALBUMIN 2.2 g/dL (3.4-5.0); BILIRUBIN,TOTAL 1.9 mg/dL (0.2-1.0); TOTAL PROTEIN, SERUM 6.9 g/dL (6.4-8.2)
[2017-07-21 12:21] LABS: BAND % (MANUAL) 1 % (0.0-5.0); EOSINOPHILS % (MANUAL) 4 % (0-4); LYMPHOCYTES % (MANUAL) 9 % (16-48); MONOCYTES % (MANUAL) 5 % (0-11.0); NEUTROPHILS % (MANUAL) 81 (42-76)
[2017-07-21 12:27] LABS: BILIRUBIN,URINE SMALL (NEGATIVE); BLOOD, URINE Negative Ery/uL (NEGATIVE); KETONES,URINE Negative (NEGATIVE); LEUKOCYTE ESTERASE ,URINE Negative (NEGATIVE); NITRITE, URINE Negative (NEGATIVE); PH,URINE 5.5 (5.0-8.0); PROTEIN,URINE Trace mg/dl (NEGATIVE); UGLUCOSE Negative (NEGATIVE)
[2017-07-21 12:29] LABS: APPEARANCE,URINE Hazy (CLEAR); COLOR,URINE Dark Yellow (YELLOW)
[2017-07-21 12:32] LABS: BACTERIA,URINE None seen /HPF (None Seen); RBC,URINE 0-3 /HPF (0-2)
[2017-07-21 12:33] LABS: HYALINE CASTS, URINE Few /LPF (None Seen); MUCUS,URINE Rare /LPF (None Seen); SQUAMOUS EPITHELIAL CELL,UR Few /HPF (None Seen)
--- NOTE | 2017-07-21 12:55 | NUR ---
CRIB PAD MAKER AT FOR PARACENTESIS
--- NOTE | 2017-07-21 13:11 | NUR ---
PAGED DR HECTOR WILSON FOR DR LINDA AGUIRRE
--- NOTE | 2017-07-21 13:30 | NUR ---
IV removed. Catheter intact and site benign. Pressure and 4x4 applied to site. No bleeding noted.
--- NOTE | 2017-07-21 13:45 | NUR ---
Patient discharged to home in stable condition. Written and verbal after care instructions given. Patient verbalizes understanding of instruction.
[2017-07-21 13:58] VITALS: BP 123/79
== END 2017-07-21 13:59 | disposition home or self-care (01) ==
LOC: ER 10:34
DX: R18.8 Other ascites (principal); K74.60 Unspecified cirrhosis of liver; F17.210 Nicotine dependence, cigarettes, uncomplicated
CPT/HCPCS: 36415; 49083 ×2; 71100; 80048; 80076; 81001; 85025; 85730; 96374; 96375; 99285; A4606; J1885; J2405; Z7610; 76942-TC; 81000-TC

== ENCOUNTER 2017-08-04 00:35 | Emergency (ER) | payer MEDICAID ==
[~2017-08-04] VITALS: Ht 175.3 cm; Wt 98.4 kg
--- NOTE | 2017-08-04 00:50 | NUR ---
TO BED 8 A 47 YO MALE BBSELF C/O ABDOMINAL DISTENTION, HX ASCITES, LAST DRAINED 1.5WEEKS AGO. PATIENT IS AAOX4, AMBULATORY WITH STEADY GAIT. PLACED ON CARDIAC AND VS MONITORING. COMFORT MEASURES RENDERED. KEPT HOB ELEVATED. GOWNED.
--- NOTE | 2017-08-04 01:11 | NUR ---
started a saline lock on the lac g18, blood drawn and sent to lab.
[2017-08-04 01:21] LABS: APPEARANCE,URINE CLEAR (CLEAR); BILIRUBIN,URINE NEGATIVE (NEGATIVE); BLOOD, URINE NEGATIVE Ery/uL (NEGATIVE); COLOR,URINE YELLOW (YELLOW); KETONES,URINE NEGATIVE (NEGATIVE); LEUKOCYTE ESTERASE ,URINE NEGATIVE (NEGATIVE); NITRITE, URINE NEGATIVE (NEGATIVE); PH,URINE 6.5 (5.0-8.0); PROTEIN,URINE NEGATIVE (NEGATIVE); UGLUCOSE NEGATIVE (NEGATIVE); UROBILINOGEN,URINE 0.2 EU/dL (0.2)
[2017-08-04 01:30] LABS: CALCIUM, SERUM 8.1 mg/dL (8.5-10.1); CREATININE 1.5 mg/dL (0.6-1.3); POTASSIUM 3.4 mmol/L (3.5-5.1)
[2017-08-04 01:37] LABS: INR 1.39 (0.87-1.13); PROTHROMBIN TIME 15.2 SECS (9.5-12.7)
[2017-08-04 01:44] LABS: ALBUMIN 2.4 g/dL (3.4-5.0); BILIRUBIN,DIRECT 0.9 mg/dL (0.0-0.2); BILIRUBIN,TOTAL 1.9 mg/dL (0.2-1.0); TOTAL PROTEIN, SERUM 7.4 g/dL (6.4-8.2)
--- NOTE | 2017-08-04 01:48 | NUR ---
PATIENT TO CT.
[2017-08-04 02:09] LABS: HEMATOCRIT 28 % (39-51); HEMOGLOBIN 9.1 g/dL (13.5-17.5); LYMPHOCYTES % (AUTO) 18.9 % (20.0-44.0); MEAN CORPUSCULAR HEMOGLOBIN 26 PG (26.0-33.0); MEAN CORPUSCULAR HGB CONC 32 g/dl (31.0-36.0); MEAN CORPUSCULAR VOLUME 81 fL (80-96); PLATELET COUNT (AUTO) 67 /CMM (150-450); RDW COEFFICIENT OF VARIATION 29.9 (11.5-15.0); RED BLOOD CELL COUNT(AUTO) 3.47 MIL/uL (4.5-6.0)
[2017-08-04 02:10] LABS: BASOPHILS % (AUTO) 0.3 % (0.0-2.0); EOSINOPHILS % (AUTO) 4.9 % (0.0-6.0); MONOCYTES % (AUTO) 6.9 % (2.0-12.0)
[2017-08-04 02:16] LABS: BAND % (MANUAL) 3 % (0.0-5.0); EOSINOPHILS % (MANUAL) 4 % (0-4); LYMPHOCYTES % (MANUAL) 19 % (16-48); MONOCYTES % (MANUAL) 4 % (0-11.0); NEUTROPHILS % (MANUAL) 70 (42-76)
--- NOTE | 2017-08-04 03:22 | NUR ---
IV removed. Catheter intact and site benign. Pressure and 4x4 applied to site. No bleeding noted. Patient discharged to home in stable condition. Written and verbal after care instructions given. Patient verbalizes understanding of instruction. Patient is ambulatory with steady gait, no further complaints.
[2017-08-04 03:23] VITALS: BP 120/69
== END 2017-08-04 03:24 | disposition home or self-care (01) ==
LOC: ER 00:37
DX: R18.8 Other ascites (principal); K74.60 Unspecified cirrhosis of liver; F17.210 Nicotine dependence, cigarettes, uncomplicated; Z88.5 Allergy status to narcotic agent; Z91.011 Allergy to milk products
CPT/HCPCS: 36415; 71010; 71250; 74176; 80048; 80076; 81001; 82140; 83605; 83690; 85025; 85730; 87040 ×2; 93005; 99285; A4606; Z7610; 81000-TC

== ENCOUNTER 2017-08-23 14:13 | Inpatient (IN) | payer MEDICAID ==
[2017-08-23] VITALS (19 sets, daily range): BP systolic 79–129; BP diastolic 16–89
[~2017-08-23] VITALS: Ht 172.7 cm; Wt 94.8 kg
--- NOTE | 2017-08-23 14:30 | NUR ---
ILIR FROM HOME FOR ALTERED MENTAL STATUS, VOMITING BLOOD SINCE THIS AM- NOTED DRY BLOOD IN MOUTH. NOTED TACHY, LABORED BREATHING, AMS, EYES WIDE OPEN. NOTED SEVERE ABD DISTENTION. SKIN JAUNDICED. MD AT BS FOR EVAL. PLACED ON PACER PADS. LARGE BORE IV ACCESS STARTED. ORDERS CARRIED OUT. SAFETY MEASURES PROVIDED. WILL CLOSELY MONITOR.
[2017-08-23 14:42] LABS: BASOPHILS # (AUTO) 0.5 /CMM (0.0-0.2); BASOPHILS % (AUTO) 4.3 % (0.0-2.0); EOSINOPHILS # (AUTO) 0.1 /CMM (0.0-0.7); EOSINOPHILS % (AUTO) 0.6 % (0.0-6.0); HEMATOCRIT 33 % (39-51); HEMOGLOBIN 11.1 g/dL (13.5-17.5); LYMPHOCYTES # (AUTO) 0.7 /CMM (0.8-4.8); LYMPHOCYTES % (AUTO) 5.6 % (20.0-44.0); MEAN CORPUSCULAR HEMOGLOBIN 27 PG (26.0-33.0); MEAN CORPUSCULAR HGB CONC 33 g/dl (31.0-36.0); MEAN CORPUSCULAR VOLUME 81 fL (80-96); NEUTROPHILS # (AUTO) 10.3 /CMM (1.8-8.9); NEUTROPHILS % (AUTO) 81.5 % (43.0-81.0); PLATELET COUNT (AUTO) 183 /CMM (150-450); RDW COEFFICIENT OF VARIATION 23.9 (11.5-15.0); RED BLOOD CELL COUNT(AUTO) 4.13 MIL/uL (4.5-6.0); WHITE BLOOD COUNT (AUTO) 12.6 K/uL (4.3-11.0)
[2017-08-23 14:52] LABS: CALCIUM, SERUM 8.9 mg/dL (8.5-10.1); CARBON DIOXIDE 20 mmol/L (21-32); CHLORIDE 98 mmol/L (98-107); CREATININE 1.8 mg/dL (0.6-1.3); GLUCOSE 132 mg/dL (74-106); POTASSIUM 4.9 mmol/L (3.5-5.1); SODIUM SERUM 131 mmol/L (136-145); UREA NITROGEN, BLOOD 24 mg/dL (7-18)
[2017-08-23 14:56] LABS: INR 1.41 (0.87-1.13)
[2017-08-23 14:58] LABS: ALANINE AMINOTRANSFERASE 30 U/L (12-78); ALBUMIN 2.2 g/dL (3.4-5.0); ALKALINE PHOSPHATASE 149 U/L (46-116); ASPARTATE AMINOTRANSFERASE 58 U/L (15-37); BILIRUBIN,TOTAL 2.8 mg/dL (0.2-1.0); LIPASE 217 U/L (73-393); TOTAL PROTEIN, SERUM 7.3 g/dL (6.4-8.2)
[2017-08-23 15:00] LABS: TROPONIN I < 0.017 ng/mL (0.00-0.056)
[2017-08-23 15:41] LABS: ALCOHOL, BLOOD < 3 mg/dL (0-0)
--- NOTE | 2017-08-23 16:15 | NUR ---
TRANSFERRED PT TO CT.
[2017-08-23 16:17] LABS: SERUM AMMONIA 526 umol/L (11-32)
--- NOTE | 2017-08-23 16:40 | NUR ---
DR. HERNÁNDEZ AT BS FOR ASCITIC FLUID ASPIRATION.
[2017-08-23] MEDS ORDERED: ZOLP5TAB7 PO (17:13)
--- NOTE | 2017-08-23 17:25 | NUR ---
REPORT GIVEN TO THOMAS GONZALEZ FOR AJ
--- NOTE | 2017-08-23 17:30 | NUR ---
SUCCESSFUL RSI DONE BY DR. HERNÁNDEZ. RTS AT BS. WILL CONT TO CLOSELY MONITOR.
--- NOTE | 2017-08-23 18:02 | NUR ---
RT NOTE PT INTUBATED PER MD ORDER. 7.5 ETT 22 CM @ LIP. CUFF INFLATED. ETT SECURE. SETTINGS PRESCRIBED. ALARMS SET PER PROTOCOL AND AUDIBLE. VENT PLUGGED IN TO RED OUTLET. AMBU BAG AT BED SIDE. NO DISTRESS NOTED. WILL CONTINUE TO MONITOR. Addendum: 08/23/17 at 1804 by PRO TAI RT Amended: Links added.
--- NOTE | 2017-08-23 18:21 | NUR ---
REPORT GIVEN TO JUANJO GONZALEZ FOR AJ
[2017-08-23 18:28] LABS: ABG BASE EXCESS -10.1 mmol/L; ABG OXYGEN SATURATION 90.6 % (92.0-98.5); ABG PCO2 26.6 mmHg (35.0-45.0); ABG PH 7.341 (7.350-7.450); ABG PO2 72.5 mmHg (75.0-100.0); COHb 0.4 % (0.5-1.5); MetHb 0.6 % (0.0-1.5); O2Hb 89.7 % (94.0-97.0); PEEP,BG 5 cm H2O; SITE, ABG Right Radial; VENT MODE, BG AC 14 550 60% +5; VT, ABG 550 mL
--- NOTE | 2017-08-23 18:40 | NUR ---
RECEIVED VERBAL ORDERS TO START PROPOFOL IV DRIP- ORDERS CARRIED OUT.
--- NOTE | 2017-08-23 20:00 | NUR ---
DRY CANS BACK TENDER NOTES RECEIVED PT IN BED, SEDATED ON DIPRIVAN. UNAROUSABLE. TELE READS ST AT 123 BPM. ON VENT VIA ETT AT ORDERED SETTINGS TOLERATING WELL. PT APPEARS TO BE GASPING FOR AIR. FIO2 >98%. NO NG TUBE PER DR WILSON, NPO AT THIS TIME. RAYO CATH PRESENT, DRAINING TO DARK CONCEPCIÓN URINE WITH MINIMAL URINE OUTPUT. ONE LITER NS BOLUS GIVEN IN ER, SECOND BOLUS TO BE GIVEN. LFA 18G IV AND RFA 16G IV, RUNNING DIPRIVAN AT 100 MCG/KG/MIN AND SANDOSTATIN AT 50 MCG/MIN. SKIN IS INTACT. ABDOMINAL ASCITES PARACENTESIS PERFORMED AT LEFT ABDOMEN FOR ANALYSIS. NO DVT AND NO CHEMICAL PROPHYLAXIS PER DR WILSON. HOB ELEVATED, SIDE RAILS X3. DRY BLOOD PRESENT ORALLY. TURNED AND REPOSITIONED.
--- NOTE | 2017-08-23 20:20 | NUR ---
PUBLIC ADDRESS ANNOUNCER NOTES PT IS UNAROUSABLE TO DEEP PAIN, NO GAG REFLEX AND NO CORNEAL REFLEX. RIGHT PUPIL NOT REACTIVE TO LIGHT. WILL BEGIN TO DECREASE DIPRIVAN DOSE UNTIL PT BECOME REACTIVE.
--- NOTE | 2017-08-23 22:10 | NUR ---
CORE WINDING OPERATOR NOTES PT CONTINUES TO BE UNAROUSABLE TO ANY TYPE OF STIMULATION. DIPRIVAN DRIP HAS BEEN STOPPED. HR REMAINS AT 120s AND RESPIRATORY RATE REMAINS IN THE 30s WITH AGONAL APPEARING BREATHING PATTERN.
[2017-08-24] VITALS (60 sets, daily range): BP systolic 40–107; BP diastolic 19–65
--- NOTE | 2017-08-24 00:15 | NUR ---
CRISIS THERAPIST NOTES PT'S SBP BELOW <[address] WILSON NOTIFIED AND NEW ORDERS RECEIVED AND INITIATED FOR LEVOPHED AND PICC LINE. PT CONTINUES TO HAVE AGONAL BREATHING APPEARANCE.
--- NOTE | 2017-08-24 01:00 | NUR ---
WIRE MILL ROVER NOTES PT HAD A TONIC CLONIC SEIZURE LASTING [address] WILSON NOTIFIED. NEW ORDER FOR ATIVAN RECEIVED. Addendum: 08/24/17 at 0704 by SIGRID CARLOS RN ALSO RECEIVED ORDER FOR 750 MG KEPPRA IVPB.
--- NOTE | 2017-08-24 01:50 | NUR ---
BARREL PLATER NOTES PT BLOOD PRESSURE CONTINUE TO BE LOWER. LEVOPHED IS AT MAX DOSE OF 40 MCG/MIN. DR WILSON NOTIFIED. NEW ORDER RECEIVED FOR DOPAMINE DRIP. NO THIRD PRESSOR PER DR WILSON.
--- NOTE | 2017-08-24 02:40 | NUR ---
PROJECT PROGRAM MANAGER NOTES PT HAD A SECOND SEIZURE LASTING 4 MINUTES. UNABLE TO GIVE ATIVAN DOSE DUE TO VERY LOW BLOOD PRESSURE.
--- NOTE | 2017-08-24 03:10 | NUR ---
FURNACE ROASTER NOTES PT HAD A THIRD SEIZURE LASTING 5 MINUTES. UNABLE TO GIVE ATIVAN DOSE DUE TO VERY LOW BLOOD PRESSURE. POST SEIZURE PT WENT INTO JUNCTIONAL RHYTHM.
--- NOTE | 2017-08-24 03:51 | NUR ---
GLUE DRIER OPERATOR NOTES 0350 PT ASSESSED WITH PEA. 0351 CODE BLUE INITIATED. COMPRESSIONS INITIATED. PT BAGGED VIA ETT. ER MD, DJANGO DEVELOPER, RECORDS MANAGER AND STAFF RNs AT BEDSIDE. 0354 CODE BLUE ENDED. PT WITH JUNCTIONAL RHYTHM AND PALPABLE PULSES. EPI DRIP ORDERED BY DR MARIE.
[2017-08-24 04:48] LABS: BASOPHILS % (AUTO) 0.1 % (0.0-2.0); EOSINOPHILS # (AUTO) 0.1 /CMM (0.0-0.7); EOSINOPHILS % (AUTO) 0.7 % (0.0-6.0); HEMATOCRIT 30 % (39-51); LYMPHOCYTES % (AUTO) 9.4 % (20.0-44.0); MEAN CORPUSCULAR HEMOGLOBIN 27 PG (26.0-33.0); MEAN CORPUSCULAR HGB CONC 30 g/dl (31.0-36.0); MEAN CORPUSCULAR VOLUME 88 fL (80-96); MONOCYTES # (AUTO) 0.4 /CMM (0.1-1.30); MONOCYTES % (AUTO) 3.3 % (2.0-12.0); NEUTROPHILS # (AUTO) 9.4 /CMM (1.8-8.9); NEUTROPHILS % (AUTO) 86.5 % (43.0-81.0); PLATELET COUNT (AUTO) 149 /CMM (150-450); RDW COEFFICIENT OF VARIATION 25.9 (11.5-15.0); RED BLOOD CELL COUNT(AUTO) 3.38 MIL/uL (4.5-6.0); WHITE BLOOD COUNT (AUTO) 10.9 K/uL (4.3-11.0)
[2017-08-24 05:17] LABS: CALCIUM, SERUM 7.1 mg/dL (8.5-10.1); CREATININE 2.5 mg/dL (0.6-1.3)
--- NOTE | 2017-08-24 05:27 | NUR ---
SHRIMP POND LABORER NOTES 0527 PT BECAME HEART RHYTHM WENT INTO ASYSTOLE. NO PULSES PALPABLE. 0527 CODE BLUE INITIATED. COMPRESSIONS INITIATED. PT BAGGED VIA ETT. ER MD, POLYETHYLENE BAG MACHINE OPERATOR, DENTAL SECRETARY AND STAFF RNs AT BEDSIDE. 0354 CODE BLUE ENDED. PT WITH JUNCTIONAL RHYTHM AND PALPABLE PULSES VERIFIED WITH DOPPLER. DR MARIE SPOKE TO FAMILY REGARD PT'S EXTREME CRITICAL STATUS. FAMILY WISHES TO KEEP FULL CODE.
[2017-08-24 05:29] LABS: POTASSIUM 7.9 mmol/L (3.5-5.1)
[2017-08-24 05:30] LABS: MAGNESIUM 4.5 mg/dL (1.8-2.4); PHOSPHORUS 12.9 mg/dL (2.5-4.9)
--- NOTE | 2017-08-24 05:35 | NUR ---
END TOUCHING MACHINE OPERATOR: DR. MARIE AT BEDSIDE FOR JABARI CLINE AND MADE AWARE OF CRITICAL LAB RESULTS FOLLOWS: K=7.9, MG=4.5, LACTIC ACID=15.3, PHOS=12.9 WT ORDERS. CHARGE NURSE SUMMER AND PRIMARY NURSE DANISHA ALSO MADE AWARE.
[2017-08-24 05:41] LABS: BAND % (MANUAL) 21 % (0.0-5.0); LYMPHOCYTES % (MANUAL) 8 % (16-48); METAMYELOCYTES % 3 % (0-0); MONOCYTES % (MANUAL) 4 % (0-11.0); NEUTROPHILS % (MANUAL) 64 (42-76)
--- NOTE | 2017-08-24 05:45 | NUR ---
STRIP STAMP STRAIGHTENER NOTES 0545 PT BECAME HEART RHYTHM WENT INTO ASYSTOLE. NO PULSES PALPABLE. CODE BLUE INITIATED. COMPRESSIONS INITIATED. PT BAGGED VIA ETT. ER MD, TRANSLATOR INTERPRETER, STAKES PLAYER AND STAFF RNs AT BEDSIDE. 0549 CODE BLUE ENDED. PT REMAINS ASYSTOLE. DR MARIE PRONOUNCED PT AT 0549. DR MARIE SPOKE TO FAMILY REGARDING PT'S .
--- NOTE | 2017-08-24 06:22 | NUR ---
ABSEILING INSTRUCTOR NOTES POST MORTEM CARE RENDERED, FAMILY AT BEDSIDE GRIEVING. TELEPHONE TECHNICIAN CALLED AND MADE AWARE. NOT A TELEPHONE TECHNICIAN CASE. [facility] CALLED AND MADE AWARE, PER BENDING ROLL HAND, AN AGENT WILL CALL BACK TO RETRIEVE MORE INFORMATION. DR WILSON NOTIFIED OF PT'S . ADMITTING NOTIFIED.
--- NOTE | 2017-08-24 08:50 | NUR ---
STEAM BOILER FIREMAN PATIENT'S HOME PERSONNEL HERE TO RUBBER TESTER THE REMAINS OF THE PATIENT. FAMILY AND PHONE TECHNICIAN ARE ALSO HERE. HOME PERSONNEL SIGNED PAPERWORK. FAMILY SIGNED RELEASE OF THE BODY FORM. PATIENT'S BODY WAS TAKEN ON A GURNEY BY THE PERSONNEL. EQUIPMENT TESTER AWARE.
== END 2017-08-24 05:49 | disposition expired | DRG 720 ==
LOC: ER 14:14 → ICU 17:57
PROVIDERS: ADMIT Internal Medicine; ATTEND Internal Medicine
PROC: 0BH18EZ Insertion of Endotracheal Airway into Trachea, Via Natural or Artificial Opening Endoscopic (ICD-10-PCS; principal; 2017-08-23)
PROC: 5A1935Z Respiratory Ventilation, Less than 24 Consecutive Hours (ICD-10-PCS; principal; 2017-08-23)
PROC: 5A12012 Performance of Cardiac Output, Single, Manual (ICD-10-PCS; 2017-08-24)
DX: A41.9 Sepsis, unspecified organism (principal); K76.7 Hepatorenal syndrome; J96.90 Respiratory failure, unspecified, unspecified whether with hypoxia or hypercapnia; I85.11 Secondary esophageal varices with bleeding; I82.0 Budd-Chiari syndrome; K70.30 Alcoholic cirrhosis of liver without ascites; J69.0 Pneumonitis due to inhalation of food and vomit; K70.40 Alcoholic hepatic failure without coma; K65.2 Spontaneous bacterial peritonitis; N17.9 Acute kidney failure, unspecified; E87.2 Acidosis; E87.5 Hyperkalemia; F17.210 Nicotine dependence, cigarettes, uncomplicated; J44.9 Chronic obstructive pulmonary disease, unspecified; N18.9 Chronic kidney disease, unspecified; Z86.718 Personal history of other venous thrombosis and embolism; F10.20 Alcohol dependence, uncomplicated; Y90.0 Blood alcohol level of less than 20 mg/100 ml
CPT/HCPCS: 31720; 36415; 36600; 70450-TC; 71010-TC; 80048-TC; 80076-TC; 80305; 82140-TC; 82962-TC; 83605-TC; 83690-TC; 83735-TC; 84100-TC; 84484-TC; 85025-TC; 85730-TC; 86850-TC; 87040-TC; 87070-TC; 87081-TC; 89051-TC; 94003-TC; A4606; C9113; G0480; J0171; J0330; J0461; J0696; J1265; J1815; J1953; J2060; J2354; J2405; J3370; J3490; J7030; J7040; J7050; J7060; Z7610